=== PATIENT | female | born 1930 | race Caucasian/White ===

== ENCOUNTER → 2017-01-05 | Outpatient (CLI) | payer MEDICARE, BC ==
[2017-01-05 15:56] LABS: ABSOLUTE BASOPHILS # (AUTO) 0.1 10^3/uL (0.0-0.2); ABSOLUTE EOSINOPHILS # (AUTO) 0.2 10^3/uL (0.0-0.6); ABSOLUTE LYMPHOCYTES (AUTO) 2.3 10^3/uL (0.5-4.7); ABSOLUTE MONOCYTES (AUTO) 0.9 10^3/uL (0.1-1.4); ABSOLUTE NEUT (AUTO) 6.6 10^3/uL (1.7-8.2); BASOPHILS % (AUTO) 0.6 % (0-2); EOSINOPHILS % (AUTO) 1.5 % (0-6); HEMATOCRIT 46.8 % (36.0-47.0); HEMOGLOBIN 16.1 g/dL (12.0-15.5); HGB HCT DIFFERENCE 1.5; MEAN CORPUSCULAR HEMOGLOBIN 29.5 pg (27.0-33.4); MEAN CORPUSCULAR HGB CONC 34.5 g/dL (32.0-36.0); MEAN CORPUSCULAR VOLUME 86 fl (80-97); MONOCYTES % (AUTO) 9.1 % (3-13); RED BLOOD COUNT 5.47 10^6/uL (3.72-5.28); RED CELL DISTRIBUTION WIDTH 14.7 % (11.5-14.0); SEGMENTED NEUTROPHILS % (AUTO) 65.8 % (42-78); WHITE BLOOD COUNT 10.1 10^3/uL (4.0-10.5)
== END ==
LOC: OD 14:38
PROVIDERS: ATTEND Internal Medicine
DX: J45.909 Unspecified asthma, uncomplicated (principal)
CPT/HCPCS: 36415; 71020; 85025

== ENCOUNTER → 2017-06-04 | Outpatient (CLI) | payer MEDICARE, BC ==
[2017-06-04 13:52] LABS: ABSOLUTE BASOPHILS # (AUTO) 0.1 10^3/uL (0.0-0.2); ABSOLUTE EOSINOPHILS # (AUTO) 0.3 10^3/uL (0.0-0.6); ABSOLUTE MONOCYTES (AUTO) 0.7 10^3/uL (0.1-1.4); ABSOLUTE NEUT (AUTO) 4.3 10^3/uL (1.7-8.2); BASOPHILS % (AUTO) 1.2 % (0-2); EOSINOPHILS % (AUTO) 4.4 % (0-6); HEMATOCRIT 42.6 % (36.0-47.0); HEMOGLOBIN 14.9 g/dL (12.0-15.5); HGB HCT DIFFERENCE 2.1; LYMPHOCYTES % (AUTO) 26.8 % (13-45); MEAN CORPUSCULAR HEMOGLOBIN 31.8 pg (27.0-33.4); MEAN CORPUSCULAR HGB CONC 34.9 g/dL (32.0-36.0); MEAN CORPUSCULAR VOLUME 91 fl (80-97); RED BLOOD COUNT 4.69 10^6/uL (3.72-5.28); RED CELL DISTRIBUTION WIDTH 14.4 % (11.5-14.0); SEGMENTED NEUTROPHILS % (AUTO) 58.6 % (42-78); WHITE BLOOD COUNT 7.3 10^3/uL (4.0-10.5)
[2017-06-04 14:24] LABS: APPEARANCE,URINE SLIGHTLY-CLOUDY; BILIRUBIN,URINE NEGATIVE (NEGATIVE); GLUCOSE, URINE NEGATIVE (NEGATIVE); KETONES,URINE NEGATIVE (NEGATIVE); LEUKOCYTE ESTERASE,URINE NEGATIVE (NEGATIVE); NITRITE,URINE NEGATIVE (NEGATIVE); PROTEIN,URINE 100 mg/dL (NEGATIVE); URINE SPECIFIC GRAVITY 1.017
== END ==
LOC: OD 13:17
PROVIDERS: ATTEND Family Medicine Geriatric Medicine
DX: R31.9 Hematuria, unspecified (principal); Z79.899 Other long term (current) drug therapy
CPT/HCPCS: 36415; 81001; 85025; 87086

== ENCOUNTER → 2017-06-11 | Outpatient (CLI) | payer MEDICARE, BC ==
[2017-06-11 13:14] LABS: ABSOLUTE BASOPHILS # (AUTO) 0.1 10^3/uL (0.0-0.2); ABSOLUTE EOSINOPHILS # (AUTO) 0.1 10^3/uL (0.0-0.6); ABSOLUTE LYMPHOCYTES (AUTO) 1.8 10^3/uL (0.5-4.7); ABSOLUTE MONOCYTES (AUTO) 0.7 10^3/uL (0.1-1.4); ABSOLUTE NEUT (AUTO) 3.7 10^3/uL (1.7-8.2); BASOPHILS % (AUTO) 1.1 % (0-2); EOSINOPHILS % (AUTO) 2.2 % (0-6); HEMATOCRIT 42.1 % (36.0-47.0); HEMOGLOBIN 14.7 g/dL (12.0-15.5); LYMPHOCYTES % (AUTO) 28.2 % (13-45); MEAN CORPUSCULAR HEMOGLOBIN 31.7 pg (27.0-33.4); MEAN CORPUSCULAR HGB CONC 34.8 g/dL (32.0-36.0); MEAN CORPUSCULAR VOLUME 91 fl (80-97); MONOCYTES % (AUTO) 10.3 % (3-13); RED BLOOD COUNT 4.62 10^6/uL (3.72-5.28); RED CELL DISTRIBUTION WIDTH 14.2 % (11.5-14.0); SEGMENTED NEUTROPHILS % (AUTO) 58.2 % (42-78); WHITE BLOOD COUNT 6.4 10^3/uL (4.0-10.5)
== END ==
LOC: OD 12:19
PROVIDERS: ATTEND Family Medicine Geriatric Medicine
DX: N39.0 Urinary tract infection, site not specified (principal); R31.9 Hematuria, unspecified
CPT/HCPCS: 36415; 85025

== ENCOUNTER → 2018-01-20 | Outpatient (CLI) | payer MEDICARE, BC ==
[2018-01-20 08:34] LABS: ABSOLUTE BASOPHILS # (AUTO) 0.1 10^3/uL (0.0-0.2); ABSOLUTE EOSINOPHILS # (AUTO) 0.1 10^3/uL (0.0-0.6); ABSOLUTE LYMPHOCYTES (AUTO) 1.6 10^3/uL (0.5-4.7); ABSOLUTE MONOCYTES (AUTO) 0.5 10^3/uL (0.1-1.4); ABSOLUTE NEUT (AUTO) 2.6 10^3/uL (1.7-8.2); BASOPHILS % (AUTO) 1.2 % (0-2); EOSINOPHILS % (AUTO) 2.8 % (0-6); HEMATOCRIT 41.3 % (36.0-47.0); HEMOGLOBIN 14.2 g/dL (12.0-15.5); LYMPHOCYTES % (AUTO) 32.6 % (13-45); MEAN CORPUSCULAR HEMOGLOBIN 31.2 pg (27.0-33.4); MEAN CORPUSCULAR HGB CONC 34.5 g/dL (32.0-36.0); MEAN CORPUSCULAR VOLUME 91 fl (80-97); MONOCYTES % (AUTO) 10.5 % (3-13); PLATELET COUNT 191 10^3/uL (150-450); RED BLOOD COUNT 4.55 10^6/uL (3.72-5.28); RED CELL DISTRIBUTION WIDTH 13.6 % (11.5-14.0); SEGMENTED NEUTROPHILS % (AUTO) 52.9 % (42-78); TOTAL CELLS COUNTED % (AUTO) 100 %
[2018-01-20 09:03] LABS: ALANINE AMINOTRANSFERASE 27 U/L (9-52); ALBUMIN 3.7 g/dL (3.5-5.0); ALKALINE PHOSPHATASE 164 U/L (38-126); ANION GAP 9 (5-19); ASPARTATE AMINO TRANSFERASE 12 U/L (14-36); BILIRUBIN,DIRECT 0.3 mg/dL (0.0-0.4); BILIRUBIN,TOTAL 0.4 mg/dL (0.2-1.3); BLOOD UREA NITROGEN 20 mg/dL (7-20); CALCIUM 9.5 mg/dL (8.4-10.2); CARBON DIOXIDE 36 mmol/L (22-30); CHLORIDE 102 mmol/L (98-107); CHOLESTEROL 143.38 mg/dL (0-200); GLUCOSE 101 mg/dL (75-110); POTASSIUM 3.3 mmol/L (3.6-5.0); SODIUM 146.8 mmol/L (137-145); TOTAL PROTEIN 6.3 g/dL (6.3-8.2); TRIGLYCERIDES 107 mg/dL (<150); URIC ACID 9.1 mg/dL (2.5-7.5)
[2018-01-20 09:16] LABS: DIRECT LDL 64 mg/dL (<100)
== END ==
LOC: OD 07:34
PROVIDERS: ATTEND Internal Medicine
DX: I48.0 Paroxysmal atrial fibrillation (principal); I73.9 Peripheral vascular disease, unspecified; M10.9 Gout, unspecified; I12.9 Hypertensive chronic kidney disease with stage 1 through stage 4 chronic kidney disease, or unspecified chronic kidney disease; N18.9 Chronic kidney disease, unspecified; R53.83 Other fatigue; E78.5 Hyperlipidemia, unspecified
CPT/HCPCS: 36415; 80053; 80061; 83735; 84443; 84550; 85025

== ENCOUNTER → 2018-10-31 | Outpatient (CLI) | payer MEDICARE, BC ==
[2018-10-31 10:10] LABS: ABSOLUTE EOSINOPHILS # (AUTO) 0.2 10^3/uL (0.0-0.6); ABSOLUTE LYMPHOCYTES (AUTO) 1.1 10^3/uL (0.5-4.7); ABSOLUTE MONOCYTES (AUTO) 0.6 10^3/uL (0.1-1.4); BASOPHILS % (AUTO) 0.8 % (0-2); EOSINOPHILS % (AUTO) 2.7 % (0-6); HEMATOCRIT 36.1 % (36.0-47.0); HEMOGLOBIN 12.4 g/dL (12.0-15.5); LYMPHOCYTES % (AUTO) 18.3 % (13-45); MEAN CORPUSCULAR HEMOGLOBIN 30.5 pg (27.0-33.4); MEAN CORPUSCULAR HGB CONC 34.3 g/dL (32.0-36.0); MEAN CORPUSCULAR VOLUME 89 fl (80-97); MONOCYTES % (AUTO) 10.6 % (3-13); PLATELET COUNT 207 10^3/uL (150-450); RED BLOOD COUNT 4.06 10^6/uL (3.72-5.28); RED CELL DISTRIBUTION WIDTH 14.7 % (11.5-14.0); SEGMENTED NEUTROPHILS % (AUTO) 67.6 % (42-78); TOTAL CELLS COUNTED % (AUTO) 100 %
[2018-10-31 10:44] LABS: ALANINE AMINOTRANSFERASE 30 U/L (9-52); ALBUMIN 3.4 g/dL (3.5-5.0); ALKALINE PHOSPHATASE 172 U/L (38-126); ANION GAP 7 (5-19); ASPARTATE AMINO TRANSFERASE 12 U/L (14-36); BILIRUBIN,DIRECT 0.2 mg/dL (0.0-0.4); BILIRUBIN,TOTAL 0.5 mg/dL (0.2-1.3); BLOOD UREA NITROGEN 25 mg/dL (7-20); CALCIUM 8.9 mg/dL (8.4-10.2); CARBON DIOXIDE 36 mmol/L (22-30); CHLORIDE 99 mmol/L (98-107); CHOLESTEROL 104.79 mg/dL (0-200); GLUCOSE 90 mg/dL (75-110); SODIUM 142.4 mmol/L (137-145); TOTAL PROTEIN 5.9 g/dL (6.3-8.2); TRIGLYCERIDES 91 mg/dL (<150)
[2018-10-31 10:55] LABS: DIRECT LDL 50 mg/dL (<100)
[2018-10-31 11:30] LABS: POTASSIUM 2.9 mmol/L (3.6-5.0)
== END ==
LOC: OD 08:30
PROVIDERS: ATTEND Internal Medicine
DX: E78.5 Hyperlipidemia, unspecified (principal); M10.9 Gout, unspecified; I73.9 Peripheral vascular disease, unspecified; R53.83 Other fatigue; N18.2 Chronic kidney disease, stage 2 (mild); I48.0 Paroxysmal atrial fibrillation
CPT/HCPCS: 36415; 80053; 80061; 84443; 84550; 85025

== ENCOUNTER 2019-05-12 08:49 | Inpatient (IN) | payer MEDICARE, BC ==
[2019-05-12] MEDS ORDERED: NORMAL SALINE 1000 ML 1,000 ML IV ONE (08:58)
[2019-05-12 09:06] LABS: ABSOLUTE EOSINOPHILS # (AUTO) 0.1 10^3/uL (0.0-0.6); EOSINOPHILS % (AUTO) 1.4 % (0-6); HEMOGLOBIN 13.1 g/dL (12.0-15.5); MEAN CORPUSCULAR HEMOGLOBIN 28.5 pg (27.0-33.4); MEAN CORPUSCULAR HGB CONC 32.7 g/dL (32.0-36.0); PLATELET COUNT 171 10^3/uL (150-450); TOTAL CELLS COUNTED % (AUTO) 100 %
[2019-05-12 09:11] LABS: ABSOLUTE MONOCYTES (AUTO) 0.6 10^3/uL (0.1-1.4); ABSOLUTE NEUT (AUTO) 5.4 10^3/uL (1.7-8.2); BASOPHILS % (AUTO) 0.6 % (0-2); LYMPHOCYTES % (AUTO) 13.6 % (13-45); MEAN CORPUSCULAR VOLUME 87 fl (80-97); RED BLOOD COUNT 4.58 10^6/uL (3.72-5.28); RED CELL DISTRIBUTION WIDTH 15.4 % (11.5-14.0); SEGMENTED NEUTROPHILS % (AUTO) 75.4 % (42-78); WHITE BLOOD COUNT 7.2 10^3/uL (4.0-10.5)
[2019-05-12 09:15] LABS: PROTHROMBIN TIME 17.3 SEC (11.4-15.4)
[2019-05-12 09:21] LABS: ALBUMIN 2.9 g/dL (3.5-5.0); ALKALINE PHOSPHATASE 191 U/L (38-126); ANION GAP 5 (5-19); ASPARTATE AMINO TRANSFERASE 15 U/L (14-36); BILIRUBIN,DIRECT 0.4 mg/dL (0.0-0.4); BILIRUBIN,TOTAL 0.7 mg/dL (0.2-1.3); BLOOD UREA NITROGEN 20 mg/dL (7-20); CALCIUM 8.8 mg/dL (8.4-10.2); CARBON DIOXIDE 27 mmol/L (22-30); CHLORIDE 108 mmol/L (98-107); GLUCOSE 90 mg/dL (75-110); POTASSIUM 4.1 mmol/L (3.6-5.0); TOTAL PROTEIN 5.6 g/dL (6.3-8.2)
[2019-05-12] MEDS ORDERED: FAT EMULSIONS IV ONE ×2 (09:33→11:00)
[2019-05-12] MEDS ORDERED: SODIUM BICARBONATE 8.4% INJ 50 MEQ/50 ML DISP.SYRIN IV ONE ×3 (09:51→15:15)
[2019-05-12 10:02] LABS: VENOUS BLOOD BASE EXCESS 1.9 mmol/L; VENOUS BLOOD HCO3 28.6 mmol/L (20-32); VENOUS BLOOD PCO2 53.5 mmHg (35-63); VENOUS BLOOD PH 7.35 (7.30-7.42)
[2019-05-12 10:03] LABS: APPEARANCE,URINE CLOUDY; BILIRUBIN,URINE NEGATIVE (NEGATIVE); GLUCOSE, URINE NEGATIVE (NEGATIVE); KETONES,URINE NEGATIVE (NEGATIVE); LEUKOCYTE ESTERASE,URINE TRACE (NEGATIVE); NITRITE,URINE NEGATIVE (NEGATIVE); PROTEIN,URINE 100 mg/dL (NEGATIVE); URINE SPECIFIC GRAVITY 1.017
[2019-05-12 10:04] LABS: COLOR,URINE AMBER
--- NOTE | 2019-05-12 10:14 | RADIOLOGY REPORT (SQ) ---
EXAM DESCRIPTION: CHEST SINGLE VIEW COMPLETED DATE/TIME: 05/12/2019 10:03 am REASON FOR STUDY: weakness COMPARISON: 09/27/2012 NUMBER OF VIEWS: One view. TECHNIQUE: Single frontal radiographic image of the chest acquired. LIMITATIONS: None. FINDINGS: LUNGS AND PLEURA: Minimal bibasilar atelectasis left greater than right. No pneumothorax. No consolidation. Numerous leads and tubes overlie the chest. MEDIASTINUM AND HILAR STRUCTURES: Unchanged. HEART AND VASCULAR STRUCTURES: Normal size. No failure. BONES: No acute findings. OTHER: No other significant finding. IMPRESSION: Basilar atelectasis. No evidence of pneumothorax. No overt failure. TECHNICAL DOCUMENTATION: JOB ID: [id number] [employer]- All Rights Reserved Reading location - IP/workstation name: [email or web address]
[2019-05-12] MEDS ORDERED: FAT EMULSIONS 250 ML IV ONE (10:20)
[2019-05-12] MEDS ORDERED: MAG HYDROX/AL HYDROX/SIMETH SUSP 30 ML UDCUP PO PRN (10:35)
[2019-05-12] MEDS ORDERED: IPRATROPIUM/ALBUTEROL 0.5-2.5 MG/3 ML AMPUL NEB PRN (10:35)
--- NOTE | 2019-05-12 10:41 | ER Document Report ---
Entered by SUZAN ESCALONA SCRIBE 05/12/19 0923 Acting as scribe for:BRI LARIOS DO ED General - General Chief Complaint: Weakness Stated Complaint: WEAKNESS Time Seen by Provider: 05/12/19 08:57 Primary Care Provider: DAVID MARES MD [Primary Care Provider] - Follow up as needed Mode of Arrival: Medic Information source: Patient Notes: Patient is an 88 year old female that presents to the emergency department today with complaints of lightheadedness when standing along with generalized weakness for months. On arrival here the patient is bradycardic with a heart rate in the 30s and hypotensive at 70s/40s. Patient takes flecainide 150 mg twice daily and Cardizem ER 180 mg daily although she has not taken any morning medications today. Patient states she stopped taking her bumex x1.5 weeks ago because she "peed too much". Patient mentions developing a brief episode of chest pain this morning at 0300. Patient also complains of "having the shakes". TRAVEL OUTSIDE OF THE [place] IN LAST 30 DAYS: No - Related Data Allergies/Adverse Reactions: cyclobenzaprine [Cyclobenzaprine] Allergy (Severe, Verified 11/20/15 10:41) leg ulcers meloxicam [From Mobic] Allergy (Severe, Verified 11/20/15 10:41) leg ulcers Penicillins Allergy (Intermediate, Verified 07/03/11 10:49) RASH Past Medical History - General Information source: Patient - Social History Smoking Status: Unknown if Ever Smoked Cigarette use (# per day): No Frequency of alcohol use: None Drug Abuse: None Lives with: Family Family History: Reviewed & Not Pertinent Patient has suicidal ideation: No Patient has homicidal ideation: No - Past Medical History Cardiac Medical History: Reports: Hx Atrial Fibrillation, Hx Hypercholesterolemia Musculoskeletal Medical History: Reports Hx Arthritis - rt knee Past Surgical History: - Immunizations Hx Diphtheria, Pertussis, Tetanus Vaccination: No Hx Pneumococcal Vaccination: 09/06/06 Review of Systems - Review of Systems Constitutional: No symptoms reported EENT: No symptoms reported Cardiovascular: See HPI, Chest pain, Lightheaded Respiratory: No symptoms reported Gastrointestinal: No symptoms reported Genitourinary: No symptoms reported Female Genitourinary: No symptoms reported Musculoskeletal: No symptoms reported Skin: No symptoms reported Hematologic/Lymphatic: No symptoms reported Neurological/Psychological: See HPI, Other - "the shakes" -: Yes All other systems reviewed and negative Physical Exam - Vital signs Vitals: Temp 98.6 F 05/12/19 08:58 Interpretation: Hypotensive, Bradycardic - General General appearance: Lethargic - HEENT Head: Normocephalic, Atraumatic Extraocular movements intact: Yes Mucous membranes: Normal Pharynx: Normal - Respiratory Respiratory status: No respiratory distress Chest status: Nontender Breath sounds: Normal - Cardiovascular Rhythm: Bradycardia - Abdominal Inspection: Normal Distension: No distension Tenderness: Nontender - Back Back: Normal - Extremities General upper extremity: Normal inspection, Nontender, Normal ROM, Normal strength, Other - Resting tremor General lower extremity: Nontender, Edema - Nonpitting, Normal strength - Neurological Neuro grossly intact: Yes Cognition: Normal Orientation: AAOx4 [place] Coma Scale Eye Opening: Spontaneous Kirill Coma Scale Verbal: Oriented Kirill Coma Scale Motor: Obeys Commands Kirill Coma Scale Total: 15 Speech: Normal Motor strength normal: LUE, RUE, LLE, RLE Sensory: Normal - Skin Skin Temperature: Cool Course - Re-evaluation Re-evalutation: 05/12/19 09:28 Spoke to transfer center at [facility]. They will get a hold of whoever is on for Dr. Palmer, the patient's burr picker. 05/12/19 09:30 Called poison control to discuss patient's heart rate, blood pressure and potential for diltiazem or flecainide toxicity. Initially said to give 2 L of normal saline which patient was already receiving. Also said to consider Intralipid therapy. This was ordered and then canceled after discussion with senior hr manager. Given patient's EKG which is showing a sinus bradycardia of 35, [place] interval of 222, QRS 140, QTc 422, recommend amps of bicarb at 2 mEq/kg. Followed by lidocaine 1.5 mg/kg over 2-minute. Intralipid was canceled and bicarb was ordered. 10:20 Received callback from WASHINGTON Garsia at [facility]. Does not think that this is related to flecainide but more likely diltiazem especially given patient's age and lowered GFR. Patient's blood pressure is improved to 160s over 70s with fluids. Heart rate is still low. Does not think that the patient requires transfer at this time. Will treat symptomatically and transfer later if necessary. Agrees with bicarb and lidocaine. 05/12/19 10:[address] Burr, hospitalist here. Patient's current heart rate is 2:42 amps of bicarb. Pressure is 160/72. Patient is awake and alert. Will accept for admission to the ICU. Patient and are agreeable to this plan. Patient is an 88-year-old female who comes in with symptomatic bradycardia. Initial heart rate in the 30s and blood pressure 70s over 40s. Patient brought her pill pack with her. She takes Cardizem 180 mg extended release daily. States that she does not believe she is taking this medication since yesterday. Takes flecainide 150 mg twice a day. Patient has not taken any medications this morning. Last pill was taken at 730 last night. Patient has not been taking Bumex because she does not like the way that it makes her pee. Fluids started for hypotension. Discussed with poison control, electrophysiology at [facility]. Patient will be admitted to the hospitalist service here to the ICU. Stable at the time of admission. - Vital Signs Vital signs: Temp Pulse Resp BP Pulse Ox 98.6 F 17 160/72 H 98 05/12/19 08:58 05/12/19 10:31 05/12/19 10:31 05/12/19 10:31 - Laboratory Result Diagrams: 05/12/19 08:38 05/12/19 08:38 Laboratory results interpreted by me: 05/12/19 05/12/19 05/12/19 08:38 08:38 08:38 RDW 15.4 H PT 17.3 H Chloride 108 H Est GFR ( Amer) 49 L Est GFR (MDRD) Non-Af 41 L Alkaline Phosphatase 191 H Total Protein 5.6 L Albumin 2.9 L Urine Protein Urine Blood Urine Urobilinogen Ur Leukocyte Esterase 05/12/19 09:40 RDW PT Chloride Est GFR ( Amer) Est GFR (MDRD) Non-Af Alkaline Phosphatase Total Protein Albumin Urine Protein 100 H Urine Blood LARGE H Urine Urobilinogen 2.0 H Ur Leukocyte Esterase TRACE H - EKG Interpretation by Me Rate: Bradycardia When compared to previous EKG there are: Changes noted Critical Care Note - Critical Care Note Total time excluding time spent on procedures (mins): 60 - Evaluation and management of symptomatic bradycardia, hypotension, discussion with consultants, coordination of admission, discussion with patient and family Discharge - Discharge Clinical Impression: Symptomatic bradycardia Condition: Stable Disposition: ADMITTED INPATIENT Admitting Provider: Leno (Hospitalist) Unit Admitted: ICU Referrals: DAVID MARES MD [Primary Care Provider] - Follow up as needed I personally performed the services described in the documentation, reviewed and edited the documentation which was dictated to the scribe in my presence, and it accurately records my words and actions.
[2019-05-12] MEDS ORDERED: GLUCAGON,HUMAN RECOMB 1 MG INJ SUBCUT ONE (11:00)
[2019-05-12 11:20] LABS: PHOSPHORUS 3.3 mg/dL (2.5-4.5)
[2019-05-12] MEDS ORDERED: CALCIUM GLUCONATE 2,000 MG in DEXTROSE 5%-WATER 100 ML IV ONE (11:30)
[2019-05-12] MEDS ORDERED: ONDANSETRON HCL INJ/PF 4 MG/2 ML SDV IV ONE (11:36)
[2019-05-12] MEDS ORDERED: SODIUM BICARBONATE 8.4% INJ 50 MEQ/50 ML DISP.SYRIN ONE (12:51)
[2019-05-12] MEDS ORDERED: LACTULOSE SYRUP 20 GM/30 ML UDCUP PO ONE (13:40)
--- NOTE | 2019-05-12 14:17 | PDOC H&P ---
History of Present Illness Admission Date/PCP: 05/12/19 10:43 DAVID MARES MD Patient complains of: Generalized weakness History of Present Illness: JOHN FAULKNER is a 88 year old female with a past medical history of morbid obesity, diabetes and paroxysmal atrial fibrillation on Eliquis, flecainide and Cardizem. Morbid obesity generalized debility, gait disorder transferring from bed to commode at baseline. She presents with 3 or 4 weeks of generalized weakness at the insistence of her daughter. She is found to have a heart rate in the 30s a blood pressure of 70/40. She denies recent change in medications via pill packs, [id number] agents or additional medications. She does however admit to discontinuation of Bumex weeks ago because of excessive urination. Poison control was contacted by emergency room provider recommending calcium ca rbonate as needed QRS greater than 140 and ICU observation. She denies chest pain nausea vomiting diaphoresis. Past Medical History Cardiac Medical History: Reports: Atrial Fibrillation, Hyperlipidema Denies: Coronary Artery Disease, Myocardial Infarction, Hypertension Pulmonary Medical History: Denies: Asthma, Bronchitis, Chronic Obstructive Pulmonary Disease (COPD), Pneumonia Neurological Medical History: Denies: Seizures GI Medical History: Denies: Hepatitis, Hiatal Hernia Musculoskeltal Medical History: Reports: Arthritis - rt knee Hematology: Denies: Anemia, Sickle Cell Disease Past Surgical History Past Surgical History: Denies: Amputation, Mastectomy, Pacemaker Social History Information Source: Patient, Emergency Med Personnel, [facility] Records Lives with: Family Smoking Status: Unknown if Ever Smoked Frequency of Alcohol Use: None Hx Recreational Drug Use: No Drugs: None Hx Prescription Drug Abuse: No - Advance Directive Resuscitation Status: Full Code Family History Family History: Hypertension Parental Family History Reviewed: Yes Children Family History Reviewed: Yes Sibling(s) Family History Reviewed.: Yes Medication/Allergy Home Medications: Allopurinol [Zyloprim 300 mg Tablet] 300 mg PO DAILY 05/12/19 Apixaban [Eliquis 2.5 mg Tablet] 2.5 mg PO BID 05/12/19 Bumetanide 1 mg PO BID 05/12/19 Diltiazem HCl [Diltiazem 24Hr ER] 180 mg PO DAILY 05/12/19 Ergocalciferol (Vitamin D2) [Drisdol] 50,000 unit PO .ONCE WEEKLY 05/12/19 Flecainide Acetate [Tambocor 100 Mg Tablet] 150 mg PO Q12H 05/12/19 Metformin HCl [Metformin ER Osmotic] 500 mg PO QHS 05/12/19 Potassium Citrate [Potassium Citrate ER] 15 meq PO BID 05/12/19 Pravastatin Sodium [Pravachol] 80 mg PO DAILY 05/12/19 Sodium Bicarbonate [Sodium Bicarbonate 650 mg Tablet] 650 mg PO BID 05/12/19 Allergies/Adverse Reactions: cyclobenzaprine [Cyclobenzaprine] Allergy (Severe, Verified 11/20/15 10:41) leg ulcers meloxicam [From Mobic] Allergy (Severe, Verified 11/20/15 10:41) leg ulcers Penicillins Allergy (Intermediate, Verified 07/03/11 10:49) RASH Review of Systems Constitutional: PRESENT: as per HPI, fatigue, weakness, weight gain. ABSENT: night sweats, weight loss Eyes: ABSENT: visual disturbances Ears: ABSENT: hearing changes Cardiovascular: PRESENT: as per HPI, dyspnea on exertion, edema. ABSENT: chest pain, palpitations Respiratory: ABSENT: cough, hemoptysis Gastrointestinal: PRESENT: constipation. ABSENT: abdominal pain, diarrhea, hematemesis, hematochezia, nausea, vomiting Genitourinary: ABSENT: dysuria, hematuria Musculoskeletal: PRESENT: muscle weakness. ABSENT: joint swelling Integumentary: ABSENT: rash, wounds Neurological: ABSENT: abnormal gait, abnormal speech, confusion, dizziness, focal weakness, syncope Psychiatric: ABSENT: anxiety, depression, homidical ideation, suicidal ideation Endocrine: ABSENT: cold intolerance, heat intolerance, polydipsia, polyuria Hematologic/Lymphatic: ABSENT: easy bleeding, easy bruising Physical Exam Vital Signs: Temp Pulse Resp BP Pulse Ox 97.8 F 50 L 18 162/69 H 96 05/12/19 12:18 05/12/19 12:18 05/12/19 12:18 05/12/19 12:18 05/12/19 12:18 Intake & Output 05/11/19 05/12/19 05/13/19 11:59 11:59 11:59 Intake Total 1000 Balance 1000 Weight 122.6 kg 121.6 kg General appearance: PRESENT: no acute distress, cooperative, morbidly obese Head exam: PRESENT: atraumatic, normocephalic Eye exam: PRESENT: conjunctiva pink, EOMI, PERRLA. ABSENT: scleral icterus Ear exam: PRESENT: normal external ear exam Mouth exam: PRESENT: moist, tongue midline Neck exam: ABSENT: carotid bruit, JVD, lymphadenopathy, thyromegaly Respiratory exam: PRESENT: clear to auscultation suzanne, symmetrical. ABSENT: accessory muscle use, rales, rhonchi, wheezes Cardiovascular exam: PRESENT: bradycardia, RRR. ABSENT: diastolic murmur, gallop, rubs, systolic murmur Pulses: PRESENT: normal dorsalis pedis pul Vascular exam: PRESENT: normal capillary refill GI/Abdominal exam: PRESENT: distended, hypoactive bowel sounds, normal bowel sounds, soft. ABSENT: guarding, mass, organolmegaly, rebound, tenderness Rectal exam: PRESENT: deferred Extremities exam: PRESENT: +1 edema Neurological exam: PRESENT: alert, awake, oriented to person, oriented to place, oriented to time, oriented to situation, CN II-XII grossly intact. ABSENT: motor sensory deficit Psychiatric exam: PRESENT: appropriate affect, normal mood. ABSENT: homicidal ideation, suicidal ideation Skin exam: PRESENT: dry, intact, warm. ABSENT: cyanosis, rash Results Laboratory Results: 05/12/19 08:38 05/12/19 08:38 05/12/19 05/12/19 05/12/19 08:38 08:38 08:38 WBC 7.2 RBC 4.58 Hgb 13.1 Hct 40.0 MCV 87 MCH 28.5 MCHC 32.7 RDW 15.4 H Plt Count 171 Seg Neutrophils % 75.4 VBG pH VBG pCO2 VBG HCO3 VBG Base Excess Sodium 140.3 Potassium 4.1 Chloride 108 H Carbon Dioxide 27 Anion Gap 5 BUN 20 Creatinine 1.25 Est GFR ( Amer) 49 L Glucose 90 Lactic Acid Calcium 8.8 Phosphorus 3.3 Magnesium 2.1 Total Bilirubin 0.7 AST 15 Alkaline Phosphatase 191 H Total Protein 5.6 L Albumin 2.9 L TSH Urine Color Urine Appearance Urine pH Ur Specific [place] Urine Protein Urine Glucose (UA) Urine Ketones Urine Blood Urine Nitrite Ur Leukocyte Esterase Urine WBC (Auto) Urine RBC (Auto) 05/12/19 05/12/19 05/12/19 08:38 09:23 09:40 WBC RBC Hgb Hct MCV MCH MCHC RDW Plt Count Seg Neutrophils % VBG pH 7.35 VBG pCO2 53.5 VBG HCO3 28.6 VBG Base Excess 1.9 Sodium Potassium Chloride Carbon Dioxide Anion Gap BUN Creatinine Est GFR ( Amer) Glucose Lactic Acid 1.2 Calcium Phosphorus Magnesium Total Bilirubin AST Alkaline Phosphatase Total Protein Albumin TSH 2.27 Urine Color Urine Appearance Urine pH Ur Specific [place] Urine Protein Urine Glucose (UA) Urine Ketones Urine Blood Urine Nitrite Ur Leukocyte Esterase Urine WBC (Auto) Urine RBC (Auto) 05/12/19 09:40 WBC RBC Hgb Hct MCV MCH MCHC RDW Plt Count Seg Neutrophils % VBG pH VBG pCO2 VBG HCO3 VBG Base Excess Sodium Potassium Chloride Carbon Dioxide Anion Gap BUN Creatinine Est GFR ( Amer) Glucose Lactic Acid Calcium Phosphorus Magnesium Total Bilirubin AST Alkaline Phosphatase Total Protein Albumin TSH Urine Color [place] Urine Appearance CLOUDY Urine pH 9.0 Ur Specific [place] 1.017 Urine Protein 100 H Urine Glucose (UA) NEGATIVE Urine Ketones NEGATIVE Urine Blood LARGE H Urine Nitrite NEGATIVE Ur Leukocyte Esterase TRACE H Urine WBC (Auto) 24 Urine RBC (Auto) >182 05/12/19 05/12/19 08:38 08:38 Creatine Kinase 30 Troponin I 0.018 Impressions: Chest X-Ray 05/12/19 08:58 IMPRESSION: Basilar atelectasis. No evidence of pneumothorax. No overt failure. Assessment and Plan - Diagnosis (1) Diabetes Qualifiers: Diabetes mellitus type: type 2 Is this a current diagnosis for this admission?: Yes Plan: Humalog sliding scale, hold metformin (2) Weakness Is this a current diagnosis for this admission?: Yes Plan: Generalized debility, morbid obesity, follow-up TSH, physical therapy consult (3) Constipation Is this a current diagnosis for this admission?: Yes Plan: Last bowel movement greater than 1 week, lactulose daily ordered. (4) Paroxysmal atrial fibrillation Is this a current diagnosis for this admission?: Yes Plan: Holding flecainide and diltiazem, reintroduction with diltiazem 30 every 8 hours when heart rate greater than 80. Continue Eliquis (5) Symptomatic bradycardia Is this a current diagnosis for this admission?: Yes Plan: Likely secondary to flecainide, diltiazem accumulation. No symptoms of hypoperfusion, orthostatic blood pressures ordered when a heart rate greater than 60. - Time Time Spent with patient: 25-34 minutes - Inpatient Certification Medical Necessity: Need Close Monitoring Due to Risk of Patient Decompensation
[2019-05-12] MEDS ORDERED: CALCIUM GLUCONATE 1000 MG/10 ML INJ IV ONE ×2 (14:36→14:45)
[2019-05-12] MEDS ORDERED: FUROSEMIDE INJ/PF 40 MG/4 ML SDV ONE (14:42)
[2019-05-12] MEDS ORDERED: HYDRALAZINE HCL INJ/PF 20 MG/1 ML SDV ONE (14:42)
[2019-05-12] MEDS: HYDRALAZINE HCL INJ/PF 20 MG/1 ML SDV IV PRN ×2 (14:54→21:31)
[2019-05-12] MEDS ORDERED: FUROSEMIDE INJ/PF 40 MG/4 ML SDV IV ONE (15:00)
[2019-05-12] MEDS: NITROGLYCERIN 5 MG (0.2 MG/HR) PATCH.TD24 TD SCH (17:52)
[2019-05-12 19:00] LABS: ALBUMIN 3.3 g/dL (3.5-5.0); ALKALINE PHOSPHATASE 224 U/L (38-126); ANION GAP 7 (5-19); ASPARTATE AMINO TRANSFERASE 18 U/L (14-36); BILIRUBIN,DIRECT 0.4 mg/dL (0.0-0.4); BILIRUBIN,TOTAL 0.7 mg/dL (0.2-1.3); BLOOD UREA NITROGEN 20 mg/dL (7-20); CALCIUM 9.7 mg/dL (8.4-10.2); CARBON DIOXIDE 35 mmol/L (22-30); CHLORIDE 102 mmol/L (98-107); GLUCOSE 112 mg/dL (75-110); POTASSIUM 4.1 mmol/L (3.6-5.0); TOTAL PROTEIN 5.9 g/dL (6.3-8.2)
[2019-05-13 03:47] LABS: ABSOLUTE BASOPHILS # (AUTO) 0.1 10^3/uL (0.0-0.2); ABSOLUTE EOSINOPHILS # (AUTO) 0.1 10^3/uL (0.0-0.6); ABSOLUTE LYMPHOCYTES (AUTO) 0.7 10^3/uL (0.5-4.7); ABSOLUTE MONOCYTES (AUTO) 0.8 10^3/uL (0.1-1.4); ABSOLUTE NEUT (AUTO) 7.1 10^3/uL (1.7-8.2); BASOPHILS % (AUTO) 0.6 % (0-2); HEMATOCRIT 38.4 % (36.0-47.0); HEMOGLOBIN 12.7 g/dL (12.0-15.5); LYMPHOCYTES % (AUTO) 7.8 % (13-45); MEAN CORPUSCULAR HEMOGLOBIN 28.4 pg (27.0-33.4); MEAN CORPUSCULAR HGB CONC 33.1 g/dL (32.0-36.0); MEAN CORPUSCULAR VOLUME 86 fl (80-97); MONOCYTES % (AUTO) 9.5 % (3-13); PLATELET COUNT 151 10^3/uL (150-450); RED BLOOD COUNT 4.47 10^6/uL (3.72-5.28); RED CELL DISTRIBUTION WIDTH 15.2 % (11.5-14.0); SEGMENTED NEUTROPHILS % (AUTO) 81.1 % (42-78); TOTAL CELLS COUNTED % (AUTO) 100 %; WHITE BLOOD COUNT 8.7 10^3/uL (4.0-10.5)
[2019-05-13 04:08] LABS: ANION GAP 6 (5-19); BLOOD UREA NITROGEN 18 mg/dL (7-20); CALCIUM 9.5 mg/dL (8.4-10.2); CARBON DIOXIDE 33 mmol/L (22-30); CHLORIDE 104 mmol/L (98-107); GLUCOSE 87 mg/dL (75-110); POTASSIUM 3.8 mmol/L (3.6-5.0)
[2019-05-13] MEDS ORDERED: ONDANSETRON HCL INJ/PF 4 MG/2 ML SDV ONE (10:05)
[2019-05-13] MEDS: LACTULOSE SYRUP 20 GM/30 ML UDCUP PO SCH (10:13)
[2019-05-13] MEDS: NITROGLYCERIN 5 MG (0.2 MG/HR) PATCH.TD24 TD SCH ×2 (10:14→14:52)
[2019-05-13] MEDS ORDERED: ONDANSETRON HCL INJ/PF 4 MG/2 ML SDV IV PRN (10:19)
--- NOTE | 2019-05-13 14:33 | PDOC PROGRESS REPORT ---
Subjective Progress Note for:: 05/13/19 Subjective:: Patient is resting in bed. Her and son are at the bedside. She still complains of shortness of breath. Reason For Visit: BRADYCARDIA, CCB TOX Physical Exam Vital Signs: Temp Pulse Resp BP Pulse Ox 98.0 F 54 L 15 151/71 H 99 05/13/19 12:00 05/13/19 12:00 05/13/19 12:00 05/13/19 12:00 05/13/19 12:00 Intake & Output 05/12/19 05/13/19 05/14/19 06:59 06:59 06:59 Intake Total 2000 Output Total 4000 Balance -2000 Weight 122.1 kg General appearance: PRESENT: no acute distress, morbidly obese, well-developed Head exam: PRESENT: atraumatic, normocephalic Eye exam: PRESENT: conjunctiva pink. ABSENT: scleral icterus Ear exam: PRESENT: normal external ear exam. ABSENT: bleeding, drainage Mouth exam: PRESENT: moist, tongue midline Respiratory exam: PRESENT: clear to auscultation suzanne - Anteriorly, symmetrical, unlabored. ABSENT: rales, rhonchi, tachypnea, wheezes Cardiovascular exam: PRESENT: RRR, +S1, +S2 GI/Abdominal exam: PRESENT: diminished bowel sounds, soft. ABSENT: distended, guarding, tenderness Rectal exam: PRESENT: deferred Extremities exam: PRESENT: pedal edema Neurological exam: PRESENT: alert, awake, oriented to person, oriented to place, oriented to time, oriented to situation, CN II-XII grossly intact Psychiatric exam: PRESENT: appropriate affect. ABSENT: agitated, anxious Focused psych exam: ABSENT: delusional, restlessness Results Laboratory Results: 05/13/19 03:29 05/13/19 03:29 05/12/19 05/13/19 05/13/19 18:30 03:29 03:29 WBC 8.7 RBC 4.47 Hgb 12.7 Hct 38.4 MCV 86 MCH 28.4 MCHC 33.1 RDW 15.2 H Plt Count 151 Seg Neutrophils % 81.1 H Sodium 143.6 143.4 Potassium 4.1 3.8 Chloride 102 104 Carbon Dioxide 35 H 33 H Anion Gap 7 6 BUN 20 18 Creatinine 1.26 H 1.23 Est GFR ( Amer) 49 L 50 L Glucose 112 H 87 Calcium 9.7 9.5 Magnesium Total Bilirubin 0.7 AST 18 Alkaline Phosphatase 224 H Total Protein 5.9 L Albumin 3.3 L 05/13/19 03:29 WBC RBC Hgb Hct MCV MCH MCHC RDW Plt Count Seg Neutrophils % Sodium Potassium Chloride Carbon Dioxide Anion Gap BUN Creatinine Est GFR ( Amer) Glucose Calcium Magnesium 2.0 Total Bilirubin AST Alkaline Phosphatase Total Protein Albumin 05/12/19 05/12/19 08:38 08:38 Creatine Kinase 30 Troponin I 0.018 Impressions: Chest X-Ray 05/12/19 08:58 IMPRESSION: Basilar atelectasis. No evidence of pneumothorax. No overt failure. Assessment and Plan - Diagnosis (1) Diabetes Qualifiers: Diabetes mellitus type: type 2 Is this a current diagnosis for this admission?: Yes Plan: 05/13/2019-history of diabetes. We will institute Accu-Cheks and sliding scale. Consider resuming metformin if appropriate. (2) Weakness Is this a current diagnosis for this admission?: Yes Plan: 05/13/2019-multiple reasons for weakness. Certainly her morbid obesity, her poor appetite over the last several days as well as her multiple comorbidities. Physical therapy will work the patient. (3) Constipation Qualifiers: Constipation type: chronic idiopathic constipation Qualified Code(s): K59.04 - Chronic idiopathic constipation Is this a current diagnosis for this admission?: Yes Plan: 05/13/2019-lactulose is prescribed. Continue to monitor for bowel movements. (4) Paroxysmal atrial fibrillation Is this a current diagnosis for this admission?: Yes Plan: 05/13/2019-the patient in fact is bradycardic. Tambocor and diltiazem are currently on hold. (5) Symptomatic bradycardia Is this a current diagnosis for this admission?: Yes Plan: 05/13/2019-despite bradycardia she is hypertensive. Between her weakness, vertigo and legs buckling under her there are multiple issues for dizziness and falling. (6) Hypertension Qualifiers: Hypertension type: essential hypertension Qualified Code(s): I10 - Essential (primary) hypertension Is this a current diagnosis for this admission?: Yes Plan: 05/13/2019-the blood pressure is elevated so I am going to resume Bumex 1 mg but administer it once daily. Continue to monitor intake and output closely. (7) Vertigo Is this a current diagnosis for this admission?: Yes Plan: 05/13/2019-she still reports symptoms of vertigo including nausea and room spinning. I am going to initiate a trial of low-dose meclizine. (8) Morbid obesity with BMI of 40.0-44.9, adult Is this a current diagnosis for this admission?: Yes Plan: 05/13/2019-patient's body mass index is 40.9. This certainly could be contributing to the sense of weakness and fatigue as well as cause some difficulty breathing. She would benefit from weight loss and this would likely be accomplished by diet as she does not appear to have the capacity for cardiova scular exercise. - Time Time Spent with patient: 15-24 minutes Medications reviewed and adjusted accordingly: Yes
[2019-05-13 15:11] LABS: AMORPHOUS SEDIMENT,URINE TRACE /HPF; APPEARANCE,URINE CLOUDY; BILIRUBIN,URINE NEGATIVE (NEGATIVE); COLOR,URINE YELLOW; GLUCOSE, URINE NEGATIVE (NEGATIVE); KETONES,URINE TRACE mg/dL (NEGATIVE); LEUKOCYTE ESTERASE,URINE NEGATIVE (NEGATIVE); NITRITE,URINE NEGATIVE (NEGATIVE); PROTEIN,URINE 30 mg/dL (NEGATIVE); URINE SPECIFIC GRAVITY 1.015
[2019-05-13] MEDS ORDERED: BUMETANIDE 1 MG TABLET PO ONE (15:30)
[2019-05-13] MEDS ORDERED: BUMETANIDE 1 MG TABLET ONE (17:29)
[2019-05-13] MEDS ORDERED: MECLIZINE HCL 25 MG TABLET ONE (17:30)
[2019-05-13] MEDS: MECLIZINE HCL 12.5 MG TABLET PO PRN (17:34)
[2019-05-13] MEDS: INSULIN LISPRO 100 UNIT/ML 3 ML VIAL SUBCUT SCH ×2 (17:38→21:11)
[2019-05-13] MEDS: CLOTRIMAZOLE/BETAMETHASONE DIP CREAM 15 GM TOP SCH (17:39)
--- NOTE | 2019-05-13 20:11 | PDOC CONSULTATION ---
Consultation-Blank Consultation: CONSULTATION by Dr. Eulalia Valdovinos on 05/13/2019. Patient seen at 12 noon. 60 minutes spent on this patient with more than 50% of time spent in direct patient care. REASON FOR CONSULTATION: Bradycardia with hypotension. For management CONSULT REQUESTING PHYSICIAN: Dr. Stuart Burr, hospitalist physician group. HISTORY PRESENT ILLNESS: Patient is a morbidly obese 88-year-old female with known history of paroxysmal atrial fibrillation cardioverted x2 to sinus rhythm and maintaining sinus rhythm on flecainide and Cardizem gives a history of a few months of dizziness on standing and also dizziness on changes in posture, and generalized weakness and fatigue. She came to the emergency room where she was bradycardic with the heart rate in the 30s. With a systolic blood pressure in the 70s. Poison control was called and the patient was placed on a bicarb drip and also was given IV fluid boluses. Subsequent to that the patient's blood pressure did come up. She was also given calcium gluconate which raised the point that this could be due to bradycardia induced by calcium channel allie. But when the patient was getting calcium gluconate her blood pressure has already come up with IV fluids. Hence clearly the patient's hypotension is related to volume depletion rather than bradycardia. Suspect that the bradycardia will linger on for a little while since the patient does have renal failure. The patient continues to have dizziness especially when she closes arises and when she moves her head or when she stands up. She also complains of tinnitus and problems with the years. The patient did present with a heart rate initially in the 40s and now in the low 50s with a stable blood pressure still has some dizziness when she moves her head around. Hence clearly this is not related to her sinus bradycardia. Also I feel that the blood pressure did come up with IV fluids. Although the heart rate did not supervisor picking crew a lot. She also states that she was diagnosed with renal insufficiency and has an appointment to see a mud engineer as an outpatient prior to this admission. Of note that the patient stopped taking Bumex about 10 days ago since she said that she urinated a lot. She denies history of congestive heart failure, coronary artery disease, or ME or anginal symptoms. She states she had a history of TIA from which she recovered fully. The patient is on chronic anticoagulation without any bleeding problems. As mentioned earlier she said she has been having proximal atrial fibrillation and has been cardioverted x2. Of note her renal function is improving and her GFR today 63 mL/min. We will have to get the patient's records from her staffing operations manager/ranch rider, especially a report of an echo. If no recent echo was done then would recommend getting a repeat echo here on Wednesday. Past Medical History Cardiac Medical History: Reports: Atrial Fibrillation, Hyperlipidema Denies: Coronary Artery Disease, Myocardial Infarction, Hypertension Pulmonary Medical History: Denies: Asthma, Bronchitis, Chronic Obstructive Pulmonary Disease (COPD), Pneumonia Neurological Medical History: Denies: Seizures GI Medical History: Denies: Hepatitis, Hiatal Hernia Musculoskeltal Medical History: Reports: Arthritis - rt knee Hematology: Denies: Anemia, Sickle Cell Disease Past Surgical History Past Surgical History: Denies: Amputation, Mastectomy, Pacemaker Social History Information Source: Patient, Emergency Med Personnel, [facility] Records Lives with: Family Smoking Status: Unknown if Ever Smoked Frequency of Alcohol Use: None Hx Recreational Drug Use: No Drugs: None Hx Prescription Drug Abuse: No - Advance Directive Resuscitation Status: Full Code Family History Family History: Hypertension Parental Family History Reviewed: Yes Children Family History Reviewed: Yes Sibling(s) Family History Reviewed.: Yes Medication/Allergy Home Medications: Allopurinol [Zyloprim 300 mg Tablet] 300 mg PO DAILY 05/12/19 Apixaban [Eliquis 2.5 mg Tablet] 2.5 mg PO BID 05/12/19 Bumetanide 1 mg PO BID 05/12/19 Diltiazem HCl [Diltiazem 24Hr ER] 180 mg PO DAILY 05/12/19 Ergocalciferol (Vitamin D2) [Drisdol] 50,000 unit PO .ONCE WEEKLY 05/12/19 Flecainide Acetate [Tambocor 100 Mg Tablet] 150 mg PO Q12H 05/12/19 Metformin HCl [Metformin ER Osmotic] 500 mg PO QHS 05/12/19 Potassium Citrate [Potassium Citrate ER] 15 meq PO BID 05/12/19 Pravastatin Sodium [Pravachol] 80 mg PO DAILY 05/12/19 Sodium Bicarbonate [Sodium Bicarbonate 650 mg Tablet] 650 mg PO BID 05/12/19 Allergies/Adverse Reactions: cyclobenzaprine [Cyclobenzaprine] Allergy (Severe, Verified 11/20/15 10:41) leg ulcers meloxicam [From Mobic] Allergy (Severe, Verified 11/20/15 10:41) leg ulcers Penicillins Allergy (Intermediate, Verified 07/03/11 10:49) RASH Review of Systems Constitutional: PRESENT: as per HPI, fatigue, weakness, weight gain. ABSENT: night sweats, weight loss Eyes: ABSENT: visual disturbances Ears: ABSENT: hearing changes Cardiovascular: PRESENT: as per HPI, dyspnea on exertion, edema. ABSENT: chest pain, palpitations Respiratory: ABSENT: cough, hemoptysis Gastrointestinal: PRESENT: constipation. ABSENT: abdominal pain, diarrhea, hematemesis, hematochezia, nausea, vomiting Genitourinary: ABSENT: dysuria, hematuria Musculoskeletal: PRESENT: muscle weakness. ABSENT: joint swelling Integumentary: ABSENT: rash, wounds Neurological: ABSENT: abnormal gait, abnormal speech, confusion, dizziness, focal weakness, syncope Psychiatric: ABSENT: anxiety, depression, homidical ideation, suicidal ideation Endocrine: ABSENT: cold intolerance, heat intolerance, polydipsia, polyuria Hematologic/Lymphatic: ABSENT: easy bleeding, easy bruising PHYSICAL EXAMINATION: Patient is morbidly obese,in no acute distress. Selected Entries 05/12/19 05/12/19 12:18 12:24 Temperature 97.8 F Temperature Oral Source Pulse Rate [ 50 L Apical] Respiratory 18 Rate Blood Pressure 162/69 H Blood Pressure 162/69 H [Left Upper Arm ] Blood Pressure 100 Mean Blood Pressure 100 Mean [Left Upper Arm] Blood Pressure Supine Position [Left Upper Arm] O2 Sat by Pulse 96 Oximetry Oxygen Delivery Nasal Cannula Method ( includes room air) Oxygen Flow 2 Rate HEAD: Is atraumatic normocephalic. EYES: Pupils are equal round regular reactive to light and accommodation. Extraocular movements are normal. There is no conjunctival pallor. There is no scleral icterus. EARS: Tympanic membranes are intact. External ear canals are clear. NOSE: There is no deviated nasal septum. There is no inflammation nasal mucous membrane. MOUTH: Mucous membranes of mouth are moist tongue is moist. There is no ulcers present there is no bleeding from the gums. THROAT: There is no redness of the oropharynx. There is no exudates. NECK: Is supple. There is no JVD. Carotids are equal there is no bruits. There is no lymphadenopathy. There is no accessory muscles of respiration use. Trachea central.. LUNGS: Is clear to auscultation percussion. HEART: S1-S2 is heard. S1 is of normal intensity. There is no S3 gallop. There is no S4 gallop. There is systolic murmur left sternal border and the apex there is no rub. ABDOMEN: Is obese. Nontender. There is no hepatospleno megaly. Bowel sounds are well heard. EXTREMITIES: Femorals are deep. Femorals are diminished. Leg pulses slightly diminished. There is no femoral bruits. There is no pedal edema. There is no DVT or cellulitis. There is no calf tenderness. There is no cyanosis or clubbing. NOODLE PRESS OPERATOR: The patient is conscious awake alert oriented x3 with no focal deficits. PSYCHIATRIC: Patient judgment insight are intact her affect is normal. Current Medications Generic Name Dose Route Start Last Admin Trade Name Freq PRN Reason Stop Dose Admin Acetaminophen 650 mg 05/12/19 10:35 Tylenol 325 Mg Tablet PO 06/11/19 10:34 Q4HP PRN FOR PAIN OR TEMP Al Hydrox/Mg Hydrox/Simethicone 30 ml 05/12/19 10:35 Maalox Plus Susp 30 Udcup PO 06/11/19 10:34 Q6HP PRN HEARTBURN Albuterol/Ipratropium 3 ml 05/12/19 10:35 Duoneb 3 Ml Ampul NEB 06/11/19 10:34 [id number] PRN SHORTNESS OF BREATH Betamethasone/Clotrimazole 1 applic 05/13/19 18:00 05/13/19 17:39 Lotrisone Cream 15 Gm TOP 06/12/19 17:59 1 applic BID EVANGELINA Administration Bumetanide 1 mg 05/14/19 10:00 Bumex 1 Mg Tablet PO 06/13/19 09:59 DAILY EVANGELINA Hydralazine HCl 10 mg 05/12/19 14:41 05/12/19 21:31 Apresoline Inj/Pf 20 Mg/1 Ml Sdv IV 06/11/19 14:40 10 mg Q6HP PRN Administration SBP>160 Insulin Human Lispro 0 - 16 unit 05/13/19 16:00 05/13/19 21:11 Humalog Insulin 100 Unit/1 Ml 3 Ml Vial SUBCUT 06/12/19 15:59 Not Given ACHS [facility] [place] Protocol Lactulose 10 gm 05/13/19 10:00 05/13/19 10:13 Cephulac Syrup 20 Gm/30 Ml Udcup PO 06/12/19 09:59 10 gm DAILY EVANGELINA Administration Meclizine HCl 12.5 mg 05/13/19 14:07 05/13/19 17:34 Antivert 12.5 Mg Tablet PO 06/12/19 14:06 12.5 mg Q8HP PRN Administration DIZZINESS Nitroglycerin 1 each 05/12/19 15:00 05/13/19 14:52 Nitro-Dur 5 Mg (0.2 Mg/Hr) Transdermal Patch TD 06/11/19 14:59 1 each DAILY EVANGELINA Administration Ondansetron HCl 4 mg 05/13/19 10:19 Zofran Inj/Pf 4 Mg/2 Ml Sdv IV 06/12/19 10:18 Q6HP PRN NAUSEA/VOMITING Discontinued Medications Generic Name Dose Route Start Last Admin Trade Name Freq PRN Reason Stop Dose Admin Bumetanide 1 mg 05/13/19 15:30 05/13/19 17:33 Bumex 1 Mg Tablet PO 05/13/19 15:31 1 mg NOW ONE Administration Bumetanide Confirm 05/13/19 17:29 05/13/19 17:34 Bumex 1 Mg Tablet Administered 05/13/19 17:30 Not Given Dose 1 mg .ROUTE .STK-MED ONE Calcium Gluconate Confirm 05/12/19 14:36 05/12/19 17:12 Calcium Gluconate Inj 1000 Mg/10 Ml Administered 05/12/19 14:37 Not Given Dose 1,000 mg IV .STK-MED ONE Calcium Gluconate 1,000 mg 05/12/19 14:45 05/12/19 14:45 Calcium Gluconate Inj 1000 Mg/10 Ml IV 05/12/19 14:46 1,000 mg NOW ONE Administration Furosemide 40 mg 05/12/19 15:00 05/12/19 14:54 Lasix Inj/Pf 40 Mg/4 Ml Sdv IV 05/12/19 15:01 40 mg NOW ONE Administration Furosemide Confirm 05/12/19 14:42 05/12/19 14:54 Lasix Inj/Pf 40 Mg/4 Ml Sdv Administered 05/12/19 14:43 Not Given Dose 40 mg .ROUTE .STK-MED ONE Glucagon 1 mg 05/12/19 11:00 05/12/19 11:37 Glucagen Inj 1 Mg Vial SUBCUT 05/12/19 11:01 1 mg NOW ONE Administration Hydralazine HCl Confirm 05/12/19 14:42 05/12/19 14:54 Apresoline Inj/Pf 20 Mg/1 Ml Sdv Administered 05/12/19 14:43 Not Given Dose 20 mg .ROUTE .STK-MED ONE Sodium Chloride 1,000 mls @ 0 mls/hr 05/12/19 08:58 05/12/19 10:37 Nacl 0.9% 1000 Ml Iv Soln IV 05/12/19 08:59 Infused BOLUS ONE Infusion Wide Open Fat Emulsion Intravenous 180 mls @ 0 mls/hr 05/12/19 09:33 05/12/19 10:59 Intralipid 20% Inj 50 Gm/250 Ml Bag IV 05/12/19 09:34 Not Given NOW ONE Wide Open Fat Emulsion Intravenous 250 mls @ 50 mls/hr 05/12/19 10:20 Intralipid 20% Inj 50 Gm/250 Ml Bag IV 05/12/19 15:19 NOW ONE Fat Emulsion Intravenous 180 mls @ 2,160 mls/hr 05/12/19 11:00 05/12/19 10:58 Intralipid 20% Inj 50 Gm/250 Ml Bag IV 05/12/19 11:04 Not Given NOW ONE Calcium Gluconate 2,000 mg/ 120 mls @ 60 mls/hr 05/12/19 11:30 05/12/19 11:37 Dextrose IV 05/12/19 13:29 60 mls/hr NOW ONE Administration Lactulose 20 gm 05/12/19 13:40 05/12/19 14:56 Cephulac Syrup 20 Gm/30 Ml Udcup PO 05/12/19 13:41 20 gm NOW ONE Administration Meclizine HCl Confirm 05/13/19 17:30 05/13/19 17:34 Antivert 25 Mg Tablet Administered 05/13/19 17:31 Not Given Dose 25 mg .ROUTE .STK-MED ONE Ondansetron HCl 4 mg 05/12/19 11:36 05/12/19 11:39 Zofran Inj/Pf 4 Mg/2 Ml Sdv IV 05/12/19 11:37 4 mg NOW ONE Administration Ondansetron HCl Confirm 05/13/19 10:05 05/13/19 10:14 Zofran Inj/Pf 4 Mg/2 Ml Sdv Administered 05/13/19 10:06 4 mg Dose Administration 4 mg .ROUTE .STK-MED ONE Sodium Bicarbonate 100 meq 05/12/19 09:51 05/12/19 10:20 Sodium Bicarbonate 8.4% Inj 50 Meq/50ml Syrin IV 05/12/19 09:52 100 meq NOW ONE Administration Sodium Bicarbonate 200 meq 05/12/19 10:47 05/12/19 11:13 Sodium Bicarbonate 8.4% Inj 50 Meq/50ml Syrin IV 05/12/19 10:48 200 meq IVBAG (ED) ONE Administration Sodium Bicarbonate Confirm 05/12/19 12:51 05/12/19 17:14 Sodium Bicarbonate 8.4% Inj 50 Meq/50ml Syrin Administered 05/12/19 12:52 Not Given Dose 50 meq .ROUTE .STK-MED ONE Sodium Bicarbonate 100 meq 05/12/19 15:15 05/12/19 13:00 Sodium Bicarbonate 8.4% Inj 50 Meq/50ml Syrin IV 05/12/19 15:16 100 meq NOW ONE Administration Labs- Entire Visit 05/12/19 05/12/19 05/12/19 08:38 08:38 08:38 WBC 7.2 RBC 4.58 Hgb 13.1 Hct 40.0 MCV 87 MCH 28.5 MCHC 32.7 RDW 15.4 H Plt Count 171 Lymph % (Auto) 13.6 [place] % (Auto) 9.0 Eos % (Auto) 1.4 Baso % (Auto) 0.6 Absolute Neuts (auto) 5.4 Absolute Lymphs (auto) 1.0 Absolute Monos (auto) 0.6 Absolute Eos (auto) 0.1 Absolute Basos (auto) 0.0 Seg Neutrophils % 75.4 PT 17.3 H INR 1.40 VBG pH VBG pCO2 VBG HCO3 VBG Base Excess Sodium 140.3 Potassium 4.1 Chloride 108 H Carbon Dioxide 27 Anion Gap 5 BUN 20 Creatinine 1.25 Est GFR ( Amer) 49 L Est GFR (MDRD) Non-Af 41 L Glucose 90 POC Glucose Lactic Acid Calcium 8.8 Phosphorus Magnesium Total Bilirubin 0.7 Direct Bilirubin 0.4 Neonat Total Bilirubin Not Reportable Neonat Direct Bilirubin Not Reportable Neonat Indirect Bili Not Reportable AST 15 ALT 19 Alkaline Phosphatase 191 H Creatine Kinase Troponin I NT-Pro-B Natriuret Pep Total Protein 5.6 L Albumin 2.9 L TSH Urine Color Urine Appearance Urine pH Ur Specific [place] Urine Protein Urine Glucose (UA) Urine Ketones Urine Blood Urine Nitrite Urine Bilirubin Urine Urobilinogen Ur Leukocyte Esterase Urine WBC (Auto) Urine RBC (Auto) Squamous Epi Cells Auto Amorphous Sediment Auto Urine Mucus (Auto) Urine Ascorbic Acid 05/12/19 05/12/19 05/12/19 08:38 08:38 08:38 WBC RBC Hgb Hct MCV MCH MCHC RDW Plt Count Lymph % (Auto) [place] % (Auto) Eos % (Auto) Baso % (Auto) Absolute Neuts (auto) Absolute Lymphs (auto) Absolute Monos (auto) Absolute Eos (auto) Absolute Basos (auto) Seg Neutrophils % PT INR VBG pH VBG pCO2 VBG HCO3 VBG Base Excess Sodium Potassium Chloride Carbon Dioxide Anion Gap BUN Creatinine Est GFR ( Amer) Est GFR (MDRD) Non-Af Glucose POC Glucose Lactic Acid Calcium Phosphorus 3.3 Magnesium 2.1 Total Bilirubin Direct Bilirubin Neonat Total Bilirubin Neonat Direct Bilirubin Neonat Indirect Bili AST ALT Alkaline Phosphatase Creatine Kinase 30 Troponin I 0.018 NT-Pro-B Natriuret Pep Total Protein Albumin TSH 2.27 Urine Color Urine Appearance Urine pH Ur Specific [place] Urine Protein Urine Glucose (UA) Urine Ketones Urine Blood Urine Nitrite Urine Bilirubin Urine Urobilinogen Ur Leukocyte Esterase Urine WBC (Auto) Urine RBC (Auto) Squamous Epi Cells Auto Amorphous Sediment Auto Urine Mucus (Auto) Urine Ascorbic Acid 05/12/19 05/12/19 05/12/19 09:23 09:36 09:40 WBC RBC Hgb Hct MCV MCH MCHC RDW Plt Count Lymph % (Auto) [place] % (Auto) Eos % (Auto) Baso % (Auto) Absolute Neuts (auto) Absolute Lymphs (auto) Absolute Monos (auto) Absolute Eos (auto) Absolute Basos (auto) Seg Neutrophils % PT INR VBG pH 7.35 VBG pCO2 53.5 VBG HCO3 28.6 VBG Base Excess 1.9 Sodium Potassium Chloride Carbon Dioxide Anion Gap BUN Creatinine Est GFR ( Amer) Est GFR (MDRD) Non-Af Glucose POC Glucose 92 Lactic Acid 1.2 Calcium Phosphorus Magnesium Total Bilirubin Direct Bilirubin Neonat Total Bilirubin Neonat Direct Bilirubin Neonat Indirect Bili AST ALT Alkaline Phosphatase Creatine Kinase Troponin I NT-Pro-B Natriuret Pep Total Protein Albumin TSH Urine Color Urine Appearance Urine pH Ur Specific [place] Urine Protein Urine Glucose (UA) Urine Ketones Urine Blood Urine Nitrite Urine Bilirubin Urine Urobilinogen Ur Leukocyte Esterase Urine WBC (Auto) Urine RBC (Auto) Squamous Epi Cells Auto Amorphous Sediment Auto Urine Mucus (Auto) Urine Ascorbic Acid 05/12/19 05/12/19 05/13/19 09:40 18:30 03:29 WBC 8.7 RBC 4.47 Hgb 12.7 Hct 38.4 MCV 86 MCH 28.4 MCHC 33.1 RDW 15.2 H Plt Count 151 Lymph % (Auto) 7.8 L [place] % (Auto) 9.5 Eos % (Auto) 1.0 Baso % (Auto) 0.6 Absolute Neuts (auto) 7.1 Absolute Lymphs (auto) 0.7 Absolute Monos (auto) 0.8 Absolute Eos (auto) 0.1 Absolute Basos (auto) 0.1 Seg Neutrophils % 81.1 H PT INR VBG pH VBG pCO2 VBG HCO3 VBG Base Excess Sodium 143.6 Potassium 4.1 Chloride 102 Carbon Dioxide 35 H Anion Gap 7 BUN 20 Creatinine 1.26 H Est GFR ( Amer) 49 L Est GFR (MDRD) Non-Af 40 L Glucose 112 H POC Glucose Lactic Acid Calcium 9.7 Phosphorus Magnesium Total Bilirubin 0.7 Direct Bilirubin 0.4 Neonat Total Bilirubin Not Reportable Neonat Direct Bilirubin Not Reportable Neonat Indirect Bili Not Reportable AST 18 ALT 24 Alkaline Phosphatase 224 H Creatine Kinase Troponin I NT-Pro-B Natriuret Pep Total Protein 5.9 L Albumin 3.3 L TSH Urine Color [place] Urine Appearance CLOUDY Urine pH 9.0 Ur Specific [place] 1.017 Urine Protein 100 H Urine Glucose (UA) NEGATIVE Urine Ketones NEGATIVE Urine Blood LARGE H Urine Nitrite NEGATIVE Urine Bilirubin NEGATIVE Urine Urobilinogen 2.0 H Ur Leukocyte Esterase TRACE H Urine WBC (Auto) 24 Urine RBC (Auto) >182 Squamous Epi Cells Auto Amorphous Sediment Auto Urine Mucus (Auto) RARE Urine Ascorbic Acid NEGATIVE 05/13/19 05/13/19 05/13/19 03:29 03:29 14:30 WBC RBC Hgb Hct MCV MCH MCHC RDW Plt Count Lymph % (Auto) [place] % (Auto) Eos % (Auto) Baso % (Auto) Absolute Neuts (auto) Absolute Lymphs (auto) Absolute Monos (auto) Absolute Eos (auto) Absolute Basos (auto) Seg Neutrophils % PT INR VBG pH VBG pCO2 VBG HCO3 VBG Base Excess Sodium 143.4 Potassium 3.8 Chloride 104 Carbon Dioxide 33 H Anion Gap 6 BUN 18 Creatinine 1.23 Est GFR ( Amer) 50 L Est GFR (MDRD) Non-Af 41 L Glucose 87 POC Glucose Lactic Acid Calcium 9.5 Phosphorus Magnesium 2.0 Total Bilirubin Direct Bilirubin Neonat Total Bilirubin Neonat Direct Bilirubin Neonat Indirect Bili AST ALT Alkaline Phosphatase Creatine Kinase Troponin I NT-Pro-B Natriuret Pep 956 H Total Protein Albumin TSH Urine Color Urine Appearance Urine pH Ur Specific [place] Urine Protein Urine Glucose (UA) Urine Ketones Urine Blood Urine Nitrite Urine Bilirubin Urine Urobilinogen Ur Leukocyte Esterase Urine WBC (Auto) Urine RBC (Auto) Squamous Epi Cells Auto Amorphous Sediment Auto Urine Mucus (Auto) Urine Ascorbic Acid 05/13/19 05/13/19 05/13/19 14:32 17:37 21:01 WBC RBC Hgb Hct MCV MCH MCHC RDW Plt Count Lymph % (Auto) [place] % (Auto) Eos % (Auto) Baso % (Auto) Absolute Neuts (auto) Absolute Lymphs (auto) Absolute Monos (auto) Absolute Eos (auto) Absolute Basos (auto) Seg Neutrophils % PT INR VBG pH VBG pCO2 VBG HCO3 VBG Base Excess Sodium Potassium Chloride Carbon Dioxide Anion Gap BUN Creatinine Est GFR ( Amer) Est GFR (MDRD) Non-Af Glucose POC Glucose 158 H 116 H Lactic Acid Calcium Phosphorus Magnesium Total Bilirubin Direct Bilirubin Neonat Total Bilirubin Neonat Direct Bilirubin Neonat Indirect Bili AST ALT Alkaline Phosphatase Creatine Kinase Troponin I NT-Pro-B Natriuret Pep Total Protein Albumin TSH Urine Color YELLOW Urine Appearance CLOUDY Urine pH 9.0 Ur Specific [place] 1.015 Urine Protein 30 H Urine Glucose (UA) NEGATIVE Urine Ketones TRACE H Urine Blood SMALL H Urine Nitrite NEGATIVE Urine Bilirubin NEGATIVE Urine Urobilinogen 4.0 H Ur Leukocyte Esterase NEGATIVE Urine WBC (Auto) Urine RBC (Auto) 25 Squamous Epi Cells Auto 1 Amorphous Sediment Auto TRACE Urine Mucus (Auto) RARE Urine Ascorbic Acid NEGATIVE Chest X-Ray 05/12/19 08:58 IMPRESSION: Basilar atelectasis. No evidence of pneumothorax. No overt failure. The patient's admission EKG shows severe sinus bradycardia with possible junctional rhythm. Doubt that this is atrial fibrillation. There is nonspecific IVCD. Subsequent EKG shows sinus bradycardia with first-degree AV block. And not junctional rhythm. There is nonspecific IVCD. Subsequent EKG also shows sinus bradycardia with first-degree AV block. IMPRESSION/RECOMMENDATION: 1. Severe bradycardia with hypotension. Note the hypotension responded to IV fluids. Hence is not caused by sinus bradycardia. Suspect the hypotension was secondary to volume depletion. The sinus bradycardia is most likely secondary to the patient's flecainide and Cardizem in the setting of renal failure. At present the patient's heart rate has come up to the low 50s and the blood pressure is stable and the patient has some dizziness which is not related to her sinus bradycardia or blood pressure. Would continue to hold the patient's Cardizem and flecainide. 2. DIZZINESS: Possibly partly this may be secondary to the patient's in a year problem since she also complains of tinnitus and describes dizziness with positional changes. She also states if she stands up suddenly she falls down but has not lost consciousness or had a syncopal episode. This could be a combination of benign positional vertigo compounded by postural hypotension 3. Paroxysmal atrial fibrillation: At present patient sinus bradycardia. Continue chronic anticoagulation. Would watch out for recurrence of atrial fibrillation. If the patient develops atrial fibrillation with rapid ventricular response then would need a permanent pacemaker to protect the patient from bradycardia induced by medications to control her heart rate. Note patient gives a history of atrial fibrillation cardioverted electrically x2 in the past 4. Hypertension: At present blood pressure stable. 5. Acute on chronic renal insufficiency. Continue slow hydration. Would recommend at present the patient not in heart failure and hence would we will hold the patient's diuretics. The patient's baseline creatinine and renal functions are not known. The patient states that she has been referred to see a mud engineer as an outpatient prior to her being admitted here. 6.diabetes mellitus type 2 [id number]. Continue current medication. Would recommend discontinue the patient's metformin. In view of the patient's renal status. 7.Possible ataxia with the cause being sensory ataxia due to the patient's complaining of dizziness and gait problems when she closes her eyes. We will recheck the patient's B12 and folic acid. Further dosing of Cardizem and flecainide depends on the patient's heart rate. Will discuss with the patient's staffing operations manager on Wednesday. Patient reviewed. Management plan and medication adjustment discussed with the attending provider on the case. Medical decision making is of high complexity. 60 minutes spent on patient with more than 50% time spent in direct patient care. Will follow
[2019-05-14 04:12] LABS: ANION GAP 6 (5-19); BLOOD UREA NITROGEN 18 mg/dL (7-20); CALCIUM 9.3 mg/dL (8.4-10.2); CARBON DIOXIDE 32 mmol/L (22-30); CHLORIDE 101 mmol/L (98-107); GLUCOSE 92 mg/dL (75-110); POTASSIUM 3.6 mmol/L (3.6-5.0)
[2019-05-14] MEDS: INSULIN LISPRO 100 UNIT/ML 3 ML VIAL SUBCUT SCH ×4 (09:09→21:23)
[2019-05-14] MEDS: LACTULOSE SYRUP 20 GM/30 ML UDCUP PO SCH (10:07)
[2019-05-14] MEDS: NITROGLYCERIN 5 MG (0.2 MG/HR) PATCH.TD24 TD SCH (10:07)
[2019-05-14] MEDS: ACETAMINOPHEN 325 MG TABLET PO PRN (10:09)
[2019-05-14] MEDS: CLOTRIMAZOLE/BETAMETHASONE DIP CREAM 15 GM TOP SCH ×2 (10:10→17:59)
[2019-05-14] MEDS: BUMETANIDE 1 MG TABLET PO SCH (10:12)
[2019-05-14] MEDS: MECLIZINE HCL 12.5 MG TABLET PO PRN (10:12)
[2019-05-14] MEDS: HYDRALAZINE HCL INJ/PF 20 MG/1 ML SDV IV PRN (14:15)
[2019-05-14] MEDS ORDERED: MECLIZINE HCL 12.5 MG TABLET PO PRN (14:19)
--- NOTE | 2019-05-14 14:24 | PDOC PROGRESS REPORT ---
Subjective Progress Note for:: 05/14/19 Subjective:: Patient is resting comfortably in bed. She is preparing for her bath with the nurses. No significant help with the meclizine 12.5 mg dose. Blood pressures are still elevated. Reason For Visit: BRADYCARDIA, CCB TOX Physical Exam Vital Signs: Temp Pulse Resp BP Pulse Ox 98.8 F 58 L 17 166/83 H 95 05/14/19 10:06 05/14/19 07:30 05/14/19 10:06 05/14/19 10:06 05/14/19 10:06 Intake & Output 05/13/19 05/14/19 05/15/19 06:59 06:59 06:59 Intake Total 1999 480 Output Total 4000 1575 Balance -1999 -1095 Weight 122.1 kg 120.4 kg General appearance: PRESENT: no acute distress, cooperative, morbidly obese, we ll-developed Head exam: PRESENT: atraumatic, normocephalic Ear exam: PRESENT: normal external ear exam. ABSENT: bleeding, drainage Respiratory exam: PRESENT: rales - Faint rales bilaterally, symmetrical, unlabored. ABSENT: accessory muscle use, rhonchi, stridor, tachypnea, wheezes Cardiovascular exam: PRESENT: RRR - Bradycardic, +S1, +S2, other GI/Abdominal exam: PRESENT: normal bowel sounds, soft. ABSENT: distended - Protuberant abdomen, tenderness Rectal exam: PRESENT: deferred Gentrourinary exam: PRESENT: indwelling catheter Extremities exam: PRESENT: pedal edema Musculoskeletal exam: PRESENT: normal inspection - Consistent with body habitus Neurological exam: PRESENT: alert, awake, oriented to person, oriented to place, oriented to time, oriented to situation, CN II-XII grossly intact Psychiatric exam: PRESENT: appropriate affect. ABSENT: agitated, anxious Focused psych exam: ABSENT: delusional, restlessness Skin exam: PRESENT: dry, normal color, warm Results Laboratory Results: 05/13/19 03:29 05/14/19 03:27 05/13/19 05/14/19 14:32 03:27 Sodium 138.8 Potassium 3.6 Chloride 101 Carbon Dioxide 32 H Anion Gap 6 BUN 18 Creatinine 1.23 Est GFR ( Amer) 50 L Glucose 92 Calcium 9.3 Magnesium 1.9 Vitamin B12 729.0 Folate 10.20 Urine Color YELLOW Urine Appearance CLOUDY Urine pH 9.0 Ur Specific Connelly 1.015 Urine Protein 30 H Urine Glucose (UA) NEGATIVE Urine Ketones TRACE H Urine Blood SMALL H Urine Nitrite NEGATIVE Ur Leukocyte Esterase NEGATIVE Urine RBC (Auto) 25 05/12/19 09:40 Catheterized Urine Urine Culture - Final NO GROWTH 2 DAYS 05/12/19 05/12/19 05/13/19 08:38 08:38 14:30 Creatine Kinase 30 Troponin I 0.018 NT-Pro-B Natriuret Pep 956 H 05/14/19 03:27 Creatine Kinase Troponin I NT-Pro-B Natriuret Pep 837 H Impressions: Chest X-Ray 05/12/19 08:58 IMPRESSION: Basilar atelectasis. No evidence of pneumothorax. No overt failure. Assessment and Plan - Diagnosis (1) Diabetes Qualifiers: Diabetes mellitus type: type 2 Is this a current diagnosis for this admission?: Yes Plan: 05/13/2019-history of diabetes. We will institute Accu-Cheks and sliding scale. Consider resuming metformin if appropriate. [id number]/14/[id number] are excellent. Continue current regimen. Resume metformin if Accu-Cheks begin to increase. (2) Weakness Is this a current diagnosis for this admission?: Yes Plan: 05/13/2019-multiple reasons for weakness. Certainly her morbid obesity, her poor appetite over the last several days as well as her multiple comorbidities. Physical therapy will work the patient. 05/14/2019-still complains of weakness. Will order physical therapy evaluation. (3) Constipation Qualifiers: Constipation type: chronic idiopathic constipation Qualified Code(s): K59.04 - Chronic idiopathic constipation Is this a current diagnosis for this admission?: Yes Plan: 05/13/2019-lactulose is prescribed. Continue to monitor for bowel movements. 05/14/2019-patient does not have a bowel movement today then will increase the s tool softener/laxative regimen. (4) Paroxysmal atrial fibrillation Is this a current diagnosis for this admission?: Yes Plan: 05/13/2019-the patient in fact is bradycardic. Tambocor and diltiazem are currently on hold. 05/14/2019-the patient is still bradycardic. Flecainide and diltiazem are on hold. (5) Symptomatic bradycardia Is this a current diagnosis for this admission?: Yes Plan: 05/13/2019-despite bradycardia she is hypertensive. Between her weakness, vertigo and legs buckling under her there are multiple issues for dizziness and falling. 05/14/2019-still with some bradycardia but she is hypertensive. Hydralazine has been added. (6) Hypertension Qualifiers: Hypertension type: essential hypertension Qualified Code(s): I10 - Essential (primary) hypertension Is this a current diagnosis for this admission?: Yes Plan: 05/13/2019-the blood pressure is elevated so I am going to resume Bumex 1 mg but administer it once daily. Continue to monitor intake and output closely. 05/14/2019-the patient is back on 1 mg of Bumex daily as opposed to her normal twice daily dosing. I have also added hydralazine 10 mg every 8 hours scheduled to slowly bring down her pressure without affecting her heart rate. (7) Vertigo Is this a current diagnosis for this admission?: Yes Plan: 05/13/2019-she still reports symptoms of vertigo including nausea and room spinning. I am going to initiate a trial of low-dose meclizine. 05/14/2019-increase the meclizine to 25 mg to see if there is better relief of her symptoms. (8) Morbid obesity with BMI of 40.0-44.9, adult Is this a current diagnosis for this admission?: Yes Plan: 05/13/2019-patient's body mass index is 40.9. This certainly could be contributing to the sense of weakness and fatigue as well as cause some difficulty breathing. She would benefit from weight loss and this would likely be accomplished by diet as she does not appear to have the capacity for cardiovascular exercise. 05/14/2019-consider aggressive diet as the patient clearly would not be able to engage in a significant amount of exercise. - Time Time Spent with patient: 15-24 minutes Medications reviewed and adjusted accordingly: Yes
[2019-05-14] MEDS: APIXABAN 2.5 MG TABLET PO SCH (18:00)
--- NOTE | 2019-05-14 18:45 | EKG REPORT ---
SEVERITY:- ABNORMAL ECG - SINUS BRADYCARDIA RHYTHM WITH APC NONSPECIFIC INTRAVENTRICULAR CONDUCTION DELAY LOW VOLTAGE THROUGHOUT BORDERLINE ST DEPRESSION, ANTEROLATERAL LEADS : Confirmed by: Dasha Mcnulty 14-May-2019 18:44:46
--- NOTE | 2019-05-14 18:46 | EKG REPORT ---
SEVERITY:- ABNORMAL ECG - SINUS BRADYCARDIA NONSPECIFIC IVCD WITH LAD : Confirmed by: Dasha Mcnulty 14-May-2019 18:45:33
--- NOTE | 2019-05-14 18:46 | EKG REPORT ---
SEVERITY:- ABNORMAL ECG - ATRIAL FIBRILLATION NONSPECIFIC INTRAVENTRICULAR CONDUCTION DELAY ABNRM R PROG, CONSIDER ASMI OR LEAD PLACEMENT MINIMAL ST DEPRESSION : Confirmed by: Dasha Mcnulty 14-May-2019 18:45:23
[2019-05-14] MEDS: HYDRALAZINE HCL 10 MG TABLET PO SCH (21:20)
--- NOTE | 2019-05-14 22:56 | Progress Note ---
Provider Note Provider Note: CARDIOLOGY PROGRESS NOTE by Dr. Eulalia Valdovinos on 05/14/2019. SUBJECTIVE: The patient denies any chest pain or discomfort. There is no shortness of breath. There is no PND orthopnea. The patient's heart rate is improved to the high to low 50s. Her blood pressure is elevated. She still has dizziness not helped with the Antivert. She has no TIA CVA symptoms. There is no recurrence of atrial fibrillation or ventricular arrhythmia seen. Physical EXAMINATION: The patient is morbidly obese. In no acute distress. Selected Entries 05/14/19 05/14/19 12:07 13:00 Temperature 98.2 F Heart Rate ( 50 52 Monitors) Respiratory 15 Rate Blood Pressure 176/78 H Blood Pressure 110 Mean O2 Sat by Pulse 99 Oximetry Patient on 2 L per nasal cannula HEAD: Is atraumatic normocephalic. EYES: Pupils are equal round regular reactive to light and accommodation. Extraocular movements are normal. There is no conjunctival pallor. There is no scleral icterus. EARS: Tympanic membranes are intact. External ear canals are clear. NOSE: There is no deviated nasal septum. There is no inflammation nasal mucous membrane. MOUTH: Mucous membranes of mouth are moist tongue is moist. There is no ulcers present there is no bleeding from the gums. THROAT: There is no redness of the oropharynx. There is no exudates. NECK: Is supple. There is no JVD. Carotids are equal there is no bruits. There is no lymphadenopathy. There is no accessory muscles of respiration use. Trachea central.. LUNGS: Is clear to auscultation percussion. HEART: S1-S2 is heard. S1 is of normal intensity. There is no S3 gallop. There is no S4 gallop. There is systolic murmur left sternal border and the apex there is no rub. ABDOMEN: Is obese. Nontender. There is no hepatospleno megaly. Bowel sounds are well heard. EXTREMITIES: Femorals are deep. Femorals are diminished. Leg pulses slightly diminished. There is no femoral bruits. There is no pedal edema. There is no DVT or cellulitis. There is no calf tenderness. There is no cyanosis or clubbing. 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 PSYCHIATRIC: Patient judgment insight are intact her affect is normal. Abnormal - 24 hr 05/14/19 05/14/19 03:27 03:27 Carbon Dioxide 32 H Est GFR ( Amer) 50 L Est GFR (MDRD) Non-Af 41 L NT-Pro-B Natriuret Pep 837 H Chest X-Ray 05/12/19 08:58 IMPRESSION: Basilar atelectasis. No evidence of pneumothorax. No overt failure. IMPRESSION/RECOMMENDATION: 1. Severe bradycardia with hypotension. Note the hypotension responded to IV fluids. Hence is not caused by sinus bradycardia. Suspect the hypotension was secondary to volume depletion. The sinus bradycardia is most likely secondary to the patient's flecainide and Cardizem in the setting of renal failure. At present the patient's heart rate has come up to the low 50s and the blood pressure is stable and the patient has some dizziness which is not related to her sinus bradycardia or blood pressure. Would continue to hold the patient's Cardizem and flecainide. 2. DIZZINESS: Possibly partly this may be secondary to the patient's in a year problem since she also complains of tinnitus and describes dizziness with positional changes. She also states if she stands up suddenly she falls down but has not lost consciousness or had a syncopal episode. This could be a combination of benign positional vertigo compounded by postural hypotension 3. Paroxysmal atrial fibrillation: At present patient sinus bradycardia. Continue chronic anticoagulation. Would watch out for recurrence of atrial fibrillation. If the patient develops atrial fibrillation with rapid ventricular response then would need a permanent pacemaker to protect the patient from bradycardia induced by medications to control her heart rate. Note patient gives a history of atrial fibrillation cardioverted electrically x2 in the past 4. Hypertension: At present blood pressure is high.Recommend starting patient on Hydralazine.. 5. Acute on chronic renal insufficiency. Continue slow hydration. Would recommend at present the patient not in heart failure and hence would we will hold the patient's diuretics. The patient's baseline creatinine and renal functions are not known. The patient states that she has been referred to see a tin pot operator as an outpatient prior to her being admitted here. 6.diabetes mellitus type 2 [id number]. Continue current medication. Would recommend discontinue the patient's metformin. In view of the patient's renal status. 7. Dizziness: The patient's B12 levels and folic acid levels are within normal limits. The dizziness is not helped with Antivert.? Etiology. Medications reviewed. Management plan discussed with attending provider on the case. Medical decision making is moderate to high complexity. 40 minutes spent on this patient with more than 50% of time spent in direct patient care will follow.
[2019-05-15 04:30] LABS: ANION GAP 6 (5-19); BLOOD UREA NITROGEN 18 mg/dL (7-20); CALCIUM 9.1 mg/dL (8.4-10.2); CARBON DIOXIDE 31 mmol/L (22-30); CHLORIDE 99 mmol/L (98-107); GLUCOSE 92 mg/dL (75-110); POTASSIUM 3.8 mmol/L (3.6-5.0)
[2019-05-15] MEDS: HYDRALAZINE HCL 10 MG TABLET PO SCH ×3 (06:20→21:33)
[2019-05-15] MEDS: INSULIN LISPRO 100 UNIT/ML 3 ML VIAL SUBCUT SCH ×3 (08:38→17:20)
[2019-05-15] MEDS: BUMETANIDE 1 MG TABLET PO SCH (09:42)
[2019-05-15] MEDS: LACTULOSE SYRUP 20 GM/30 ML UDCUP PO SCH (09:42)
[2019-05-15] MEDS: NITROGLYCERIN 5 MG (0.2 MG/HR) PATCH.TD24 TD SCH (09:42)
[2019-05-15] MEDS: APIXABAN 2.5 MG TABLET PO SCH ×2 (09:42→17:06)
[2019-05-15] MEDS: CLOTRIMAZOLE/BETAMETHASONE DIP CREAM 15 GM TOP SCH ×2 (09:48→17:06)
[2019-05-15] MEDS ORDERED: MAGNESIUM CITRATE 296 ML BOTTLE PO ONE (18:04)
[2019-05-15] MEDS: BISACODYL 5 MG TABEC PO PRN (21:34)
--- NOTE | 2019-05-15 22:22 | PDOC PROGRESS REPORT ---
Subjective Progress Note for:: 05/15/19 Subjective:: Patient is resting in bed this evening. She states that she has slept most of the day. She seems comfortable. Reason For Visit: BRADYCARDIA, CCB TOX, hypertension Physical Exam Vital Signs: Temp Pulse Resp BP Pulse Ox 97.9 F 55 L 19 134/49 H 95 05/15/19 19:44 05/15/19 19:44 05/15/19 19:44 05/15/19 19:44 05/15/19 19:44 Intake & Output 05/14/19 05/15/19 05/16/19 06:59 06:59 06:59 Intake Total 712 534 1680 Output Total 1578 2075 1300 Balance -1095 -1367 314 Weight 120.4 kg 120.8 kg Results Laboratory Results: 05/13/19 03:29 05/15/19 03:40 05/15/19 03:40 Sodium 135.7 L Potassium 3.8 Chloride 99 Carbon Dioxide 31 H Anion Gap 6 BUN 18 Creatinine 1.10 Est GFR ( Amer) 57 L Glucose 92 Calcium 9.1 Magnesium 1.9 05/12/19 05/12/19 05/13/19 08:38 08:38 14:30 Creatine Kinase 30 Troponin I 0.018 NT-Pro-B Natriuret Pep 956 H 05/14/19 03:27 Creatine Kinase Troponin I NT-Pro-B Natriuret Pep 837 H Impressions: Chest X-Ray 05/12/19 08:58 IMPRESSION: Basilar atelectasis. No evidence of pneumothorax. No overt failure. Assessment and Plan - Diagnosis (1) Symptomatic bradycardia Is this a current diagnosis for this admission?: Yes Plan: 05/13/2019-despite bradycardia she is hypertensive. Between her weakness, vertigo and legs buckling under her there are multiple issues for dizziness and falling. 05/14/2019-still with some bradycardia but she is hypertensive. Hydralazine has been added. 05/15/2019-bradycardia is improving. Her heart rate appears to be in the 50s and 60s for the most part. She has still not had any of her diltiazem or flecainide. We are controlling her blood pressure with other medications. The symptoms reportedly caused by the bradycardia may in fact have been other issues such as vertigo (2) Paroxysmal atrial fibrillation Is this a current diagnosis for this admission?: Yes Plan: 05/13/2019-the patient in fact is bradycardic. Tambocor and diltiazem are currently on hold. 05/14/2019-the patient is still bradycardic. Flecainide and diltiazem are on hold. 05/15/2019-still has not needed any flecainide or diltiazem. Bradycardia is improving. (3) Diabetes Qualifiers: Diabetes mellitus type: type 2 Diabetes mellitus skilled nursing insulin use: without long term care phlebotomist use Diabetes mellitus complication status: with kidney complications Diabetes mellitus complication detail: with chronic kidney disease Chronic kidney disease stage: stage 2 (mild) Qualified Code(s): E 11.22 - Type 2 diabetes mellitus with diabetic chronic kidney disease; N18.2 - Chronic kidney disease, stage 2 (mild) Is this a current diagnosis for this admission?: Yes Plan: 05/13/2019-history of diabetes. We will institute Accu-Cheks and sliding scale. Consider resuming metformin if appropriate. 05/14/[id number] are excellent. Continue current regimen. Resume metformin if Accu-Cheks begin to increase. 05/15/2019-excellent Accu-Cheks. At this time metformin not necessary. Consider resuming at discharge. (4) Weakness Is this a current diagnosis for this admission?: Yes Plan: 05/13/2019-multiple reasons for weakness. Certainly her morbid obesity, her poor appetite over the last several days as well as her multiple comorbidities. Physical therapy will work the patient. 05/14/2019-still complains of weakness. Will order physical therapy evaluation. 05/15/2019-physical therapy has seen the patient. She was able to stand. She does not report ambulating at all. We will continue to monitor. Function is still limited. (5) Constipation Qualifiers: Constipation type: chronic idiopathic constipation Qualified Code(s): K59.04 - Chronic idiopathic constipation Is this a current diagnosis for this admission?: Yes Plan: 05/13/2019-lactulose is prescribed. Continue to monitor for bowel movements. 05/14/2019-patient does not have a bowel movement today then will increase the stool softener/laxative regimen. 05/15/2019-patient reports no bowel movement yet. I will administer 1 bottle of citrate of magnesia and start MiraLAX. This should relieve the constipation. (6) Hypertension Qualifiers: Hypertension type: essential hypertension Qualified Code(s): I10 - Ess ential (primary) hypertension Is this a current diagnosis for this admission?: Yes Plan: 05/13/2019-the blood pressure is elevated so I am going to resume Bumex 1 mg but administer it once daily. Continue to monitor intake and output closely. 05/14/2019-the patient is back on 1 mg of Bumex daily as opposed to her normal twice daily dosing. I have also added hydralazine 10 mg every 8 hours scheduled to slowly bring down her pressure without affecting her heart rate. 05/15/2019-very good systolic blood pressures. Diastolics are somewhat low. Consider decreasing hydralazine. (7) Vertigo Is this a current diagnosis for this admission?: Yes Plan: 05/13/2019-she still reports symptoms of vertigo including nausea and room spinning. I am going to initiate a trial of low-dose meclizine. 05/14/2019-increase the meclizine to 25 mg to see if there is better relief of her symptoms. 05/15/2019-physical therapy reports that patient felt dizzy with standing. This certainly could be hypertension. The patient did not describe room spinning. There are multiple factors for lightheadedness and dizziness in this patient but we will continue as needed meclizine. (8) Morbid obesity with BMI of 40.0-44.9, adult Is this a current diagnosis for this admission?: Yes Plan: 05/13/2019-patient's body mass index is 40.9. This certainly could be contributing to the sense of weakness and fatigue as well as cause some dif ficulty breathing. She would benefit from weight loss and this would likely be accomplished by diet as she does not appear to have the capacity for cardiovascular exercise. 05/14/2019-consider aggressive diet as the patient clearly would not be able to engage in a significant amount of exercise. 05/15/2019-as above - Time Time Spent with patient: Less than 15 minutes Medications reviewed and adjusted accordingly: Yes - Plan Summary Plan Summary: Pleasant 88-year-old female who presented with bradycardia. She was on flecainide and diltiazem. 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 She received several treatments per poison control. The bradycardia is improving. The patient in fact is hypertensive and required multiple medications to bring her pressure down without adversely affecting her heart rate. Blood pressure is much better and even consider decreasing hydralazine. She is back on Bumex 1 mg daily instead of 2 mg. Cardiology is following. No negative chronotropic medicines at this time. She will continue physical therapy. I did asked the patient about disposition. She emphatically wishes to return home with home health.
--- NOTE | 2019-05-15 22:37 | Progress Note ---
Provider Note Provider Note: CARDIOLOGY PROGRESS NOTE by Dr. Eulalia Valdovinos on 05/15/2019. Subjective: The patient denies any chest pain or discomfort. There is no shortness of breath. She is remains in sinus bradycardia with a heart rate is come up to 58 bpm. She still has dizziness which is related to her posture or being moved in bed. There is no TIA CVA symptoms. There is no bleeding on Eliquis. There is no PND orthopnea or shortness of breath at rest. There is no leg edema. PHYSICAL EXAMINATION: The patient is morbidly obese. In no acute distress Selected Entries 05/15/19 08:21 Temperature 99.3 F Temperature Oral Source Pulse Rate 58 L Respiratory 18 Rate Blood Pressure 153/63 H O2 Sat by Pulse 98 Oximetry Oxygen Delivery Nasal Cannula Method ( includes room air) Oxygen Flow 2 Rate HEAD: Is atraumatic normocephalic. EYES: Pupils are equal round regular reactive to light and accommodation. Extraocular movements are normal. There is no conjunctival pallor. There is no scleral icterus. EARS: Tympanic membranes are intact. External ear canals are clear. NOSE: There is no deviated nasal septum. There is no inflammation nasal mucous membrane. MOUTH: Mucous membranes of mouth are moist tongue is moist. There is no ulcers present there is no bleeding from the gums. THROAT: There is no redness of the oropharynx. There is no exudates. NECK: Is supple. There is no JVD. Carotids are equal there is no bruits. There is no lymphadenopathy. There is no accessory muscles of respiration use. Trachea central.. LUNGS: Is clear to auscultation percussion. HEART: S1-S2 is heard. S1 is of normal intensity. There is no S3 gallop. There is no S4 gallop. There is systolic murmur left sternal border and the apex there is no rub. ABDOMEN: Is obese. Nontender. There is no hepatospleno megaly. Bowel sounds are well heard. EXTREMITIES: Femorals are deep. Femorals are diminished. Leg pulses slightly diminished. There is no femoral bruits. There is no pedal edema. There is no DVT or cellulitis. There is no calf tenderness. There is no cyanosis or clubbing. 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 PSYCHIATRIC: Patient judgment insight are intact her affect is normal. Abnormal - 24 hr 05/15/19 03:40 Sodium 135.7 L Carbon Dioxide 31 H Est GFR ( Amer) 57 L Est GFR (MDRD) Non-Af 47 L Chest X-Ray 05/12/19 08:58 IMPRESSION: Basilar atelectasis. No evidence of pneumothorax. No overt failure. IMPRESSION/RECOMMENDATION: 1. Severe bradycardia with hypotension. Note the hypotension responded to IV fluids. Hence is not caused by sinus bradycardia. Suspect the hypotension was secondary to volume depletion. The sinus bradycardia is most likely secondary to the patient's flecainide and Cardizem in the setting of renal failure. At present the patient's heart rate has come up to the low 50s and the blood pressure is stable and the patient has some dizziness which is not related to her sinus bradycardia or blood pressure. Would continue to hold the patient's Cardizem and flecainide. 2. DIZZINESS: Possibly partly this may be secondary to the patient's in a year problem since she also complains of tinnitus and describes dizziness with positional changes. She also states if she stands up suddenly she falls down but has not lost consciousness or had a syncopal episode. This could be a combination of benign positional vertigo compounded by postural hypotension 3. Paroxysmal atrial fibrillation: At present patient sinus bradycardia. Continue chronic anticoagulation. Would watch out for recurrence of atrial fibrillation. If the patient develops atrial fibrillation with rapid ventricular response then would need a permanent pacemaker to protect the patient from bradycardia induced by medications to control her heart rate. Note patient gives a history of atrial fibrillation cardioverted electrically x2 in the past 4. Hypertension: At present blood pressure is high.Recommend starting patient on Hydralazine.. 5. Acute on chronic renal insufficiency. Continue slow hydration. Would recommend at present the patient not in heart failure and hence would we will hold the patient's diuretics. The patient's baseline creatinine and renal functions are not known. The patient states that she has been referred to see a olive picker as an outpatient prior to her being admitted here. 6.diabetes mellitus type 2 [id number]. Continue current medication. Would recommend discontinue the patient's metformin. In view of the patient's renal status. 7. Dizziness: The patient's B12 levels and folic acid levels are within normal limits. The dizziness is not helped with Antivert.? Etiology. Medications reviewed. Management plan discussed with attending provider on the case. Medical decision making is moderate to high complexity. 40 minutes spent on this patient with more than 50% of time spent in direct patient care will follow.
[2019-05-16] MEDS: INSULIN LISPRO 100 UNIT/ML 3 ML VIAL SUBCUT SCH ×5 (00:37→21:26)
[2019-05-16] MEDS: HYDRALAZINE HCL 10 MG TABLET PO SCH ×3 (05:34→21:54)
[2019-05-16] MEDS: APIXABAN 2.5 MG TABLET PO SCH ×2 (09:38→17:26)
[2019-05-16] MEDS: LACTULOSE SYRUP 20 GM/30 ML UDCUP PO SCH (09:38)
[2019-05-16] MEDS: NITROGLYCERIN 5 MG (0.2 MG/HR) PATCH.TD24 TD SCH (09:38)
[2019-05-16] MEDS: CLOTRIMAZOLE/BETAMETHASONE DIP CREAM 15 GM TOP SCH ×2 (09:39→17:27)
[2019-05-16] MEDS: BUMETANIDE 1 MG TABLET PO SCH (09:39)
[2019-05-16] MEDS: POLYETHYLENE GLYCOL 3350 POWDER 17 GM/1 PACKET PO SCH (09:39)
--- NOTE | 2019-05-16 19:47 | PDOC PROGRESS REPORT ---
Subjective Progress Note for:: 05/16/19 Subjective:: No adverse events overnight. No new complaints. She wants to go home but when she worked with physical therapy the other day all she did was stand up at the edge of the bed. She did not work with him yesterday. Apparently she has not been walking very well for quite a while. She is very resistant to going to a longterm facility because someone she knows had a bad experience at some place. Reason For Visit: BRADYCARDIA, CCB TOX Physical Exam Vital Signs: Temp Pulse Resp BP Pulse Ox 98.2 F 62 20 144/64 H 99 05/16/19 16:29 05/16/19 19:00 05/16/19 16:29 05/16/19 16:29 05/16/19 16:29 Intake & Output 05/15/19 05/16/19 05/17/19 06:59 06:59 06:59 Intake Total 708 1614 1540 Output Total 2079 1850 1650 Balance -1367 -236 -110 Weight 120.8 kg 117.7 kg General appearance: PRESENT: no acute distress, cooperative, disheveled, morbidly obese Respiratory exam: PRESENT: clear to auscultation suzanne, symmetrical, unlabored. ABSENT: accessory muscle use, chest wall tenderness, crackles, prolonged expiratory phas, rhonchi, tachypnea, wheezes Cardiovascular exam: PRESENT: bradycardia, irregular rhythm Pulses: PRESENT: normal carotid pulses Vascular exam: PRESENT: normal capillary refill GI/Abdominal exam: PRESENT: normal bowel sounds, soft. ABSENT: distended, guarding, rebound, tenderness Extremities exam: ABSENT: clubbing, pedal edema Musculoskeletal exam: PRESENT: normal inspection. ABSENT: deformity Neurological exam: PRESENT: alert, awake, oriented to person, oriented to place, oriented to situation Psychiatric exam: PRESENT: appropriate affect, normal mood Skin exam: PRESENT: dry, warm Results Laboratory Results: 05/13/19 03:29 05/15/19 03:40 05/13/19 14:32 Catheterized Urine Urine Culture - Final Viridans Streptococcus 05/12/19 05/12/19 05/13/19 08:38 08:38 14:30 Creatine Kinase 30 Troponin I 0.018 NT-Pro-B Natriuret Pep 956 H 05/14/19 03:27 Creatine Kinase Troponin I NT-Pro-B Natriuret Pep 837 H Impressions: Chest X-Ray 05/12/19 08:58 IMPRESSION: Basilar atelectasis. No evidence of pneumothorax. No overt failure. Assessment and Plan - Diagnosis (1) Symptomatic bradycardia Is this a current diagnosis for this admission?: Yes Plan: She is been taken off her calcium channel allie in the flecainide and her heart rate is staying in the mid upper 50s. (2) Paroxysmal atrial fibrillation Is this a current diagnosis for this admission?: Yes Plan: She continues on Eliquis. She will follow-up with cardiology for further management. (3) Hypertension Qualifiers: Hypertension type: essential hypertension Qualified Code(s): I10 - Essential (primary) hypertension Is this a current diagnosis for this admission?: Yes Plan: Currently has fair control. Any agents use will need to be something that does not affect her heart rate. (4) Morbid obesity with BMI of 40.0-44.9, adult Is this a current diagnosis for this admission?: Yes Plan: Strongly encouraged lifestyle modification (5) Weakness Is this a current diagnosis for this admission?: Yes Plan: Have strongly encouraged her to consider going to a longterm facility, and that she does not have to go to whatever facility it was where her friend had a bad experience. She says that she will reconsider if she does not do well for physical therapy today. (6) Diabetes Qualifiers: Diabetes mellitus type: type 2 Diabetes mellitus tank terminal gauger insulin use: without residential use Diabetes mellitus complication status: with kidney complications Diabetes mellitus complication detail: with chronic kidney disease Chronic kidney disease stage: stage 2 (mild) Qualified Code(s): E11.22 - Type 2 diabetes mellitus with diabetic chronic kidney disease; N18.2 - Chronic kidney disease, stage 2 (mild) Is this a current diagnosis for this admission?: Yes Plan: Well-controlled on her current regimen - Time Time Spent with patient: 15-24 minutes
--- NOTE | 2019-05-16 21:04 | Progress Note ---
Provider Note Provider Note: cardiology PROGRESS NOTE by Dr. Eulalia Marinelli on 05/16/2019. SUBJECTIVE: The patient heart rate is much improved into the 60s. She denies any chest pain or discomfort. There is no ventricular arrhythmia seen on the monitor. There is no chest pain or discomfort there is no shortness of breath. There is no PND orthopnea. There is no TIA CVA symptoms. There is no bleeding on Eliquis. There is no recurrence of atrial fibrillation. The patient complains of being constipated. Physical EXAMINATION: The patient is morbidly obese. She is well-groomed. In no acute distress Selected Entries 05/16/19 16:29 Temperature 98.2 F Temperature Oral Source Pulse Rate 60 Respiratory 20 Rate Blood Pressure 144/64 H Blood Pressure 90 Mean BP Position Supine O2 Sat by Pulse 99 Oximetry Oxygen Flow 2.00 Rate Oxygen Delivery Nasal Cannula Method HEAD: Is atraumatic normocephalic. EYES: Pupils are equal round regular reactive to light and accommodation. Extraocular movements are normal. There is no conjunctival pallor. There is no scleral icterus. EARS: Tympanic membranes are intact. External ear canals are clear. NOSE: There is no deviated nasal septum. There is no inflammation nasal mucous membrane. MOUTH: Mucous membranes of mouth are moist tongue is moist. There is no ulcers present there is no bleeding from the gums. THROAT: There is no redness of the oropharynx. There is no exudates. NECK: Is supple. There is no JVD. Carotids are equal there is no bruits. There is no lymphadenopathy. There is no accessory muscles of respiration use. Trachea central.. LUNGS: Is clear to auscultation percussion. HEART: S1-S2 is heard. S1 is of normal intensity. There is no S3 gallop. There is no S4 gallop. There is systolic murmur left sternal border and the apex there is no rub. ABDOMEN: Is obese. Nontender. There is no hepatospleno megaly. Bowel sounds are well heard. EXTREMITIES: Femorals are deep. Femorals are diminished. Leg pulses slightly diminished. There is no femoral bruits. There is no pedal edema. There is no DVT or cellulitis. There is no calf tenderness. There is no cyanosis or clubbing. 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 PSYCHIATRIC: Patient judgment insight are intact her affect is normal. Labs- All tests 24 hr 05/16/19 05/16/19 05/16/19 00:04 10:48 16:44 POC Glucose 111 H 149 H 111 H 05/16/19 21:26 POC Glucose 120 H Chest X-Ray 05/12/19 08:58 IMPRESSION: Basilar atelectasis. No evidence of pneumothorax. No overt failure. IMPRESSION/RECOMMENDATION: 1. Severe bradycardia with hypotension. Note the hypotension responded to IV fluids. Hence is not caused by sinus bradycardia. Suspect the hypotension was secondary to volume depletion. The sinus bradycardia is most likely secondary to the patient's flecainide and Cardizem in the setting of renal failure. At present the patient's heart rate has come up to the low 50s and the blood press ure is stable and the patient has some dizziness which is not related to her sinus bradycardia or blood pressure. Would continue to hold the patient's Cardizem and flecainide. 2. DIZZINESS: Possibly partly this may be secondary to the patient's in a year problem since she also complains of tinnitus and describes dizziness with positional changes. She also states if she stands up suddenly she falls down but has not lost consciousness or had a syncopal episode. This could be a combination of benign positional vertigo compounded by postural hypotension 3. Paroxysmal atrial fibrillation: At present patient sinus bradycardia. Continue chronic anticoagulation. Would watch out for recurrence of atrial fibrillation. If the patient develops atrial fibrillation with rapid ventricular response then would need a permanent pacemaker to protect the patient from bradycardia induced by medications to control her heart rate. Note patient gives a history of atrial fibrillation cardioverted electrically x2 in the past. Later when the heart rate comes to 70 or above we will start the patient on a low-dose of flecainide. 4. Hypertension: At present blood pressure is high.Recommend starting patient on Hydralazine.. 5. Acute on chronic renal insufficiency. Continue slow hydration. Would recommend at present the patient not in heart failure and hence would we will hold the patient's diuretics. The patient's baseline creatinine and renal functions are not known. The patient states that she has been referred to see a accounts payable administrator as an outpatient prior to her being admitted here. 6.diabetes mellitus type 2 [id number]. Continue current medication. Would recommend discontinue the patient's metformin. In view of the patient's renal status. 7. Dizziness: The patient's B12 levels and folic acid levels are within normal limits. The dizziness is not helped with Antivert.? Etiology. Medications reviewed. Management plan discussed with attending provider on the case. Medical decision making is moderate to high complexity. 40 minutes spent on this patient with more than 50% of time spent in direct patient care will follow..
[2019-05-16] MEDS: BISACODYL 5 MG TABEC PO PRN (21:57)
[2019-05-17] MEDS: ACETAMINOPHEN 325 MG TABLET PO PRN ×2 (03:06→22:14)
[2019-05-17] MEDS: HYDRALAZINE HCL INJ/PF 20 MG/1 ML SDV IV PRN (03:10)
[2019-05-17] MEDS: HYDRALAZINE HCL 10 MG TABLET PO SCH ×3 (05:59→21:21)
[2019-05-17] MEDS: INSULIN LISPRO 100 UNIT/ML 3 ML VIAL SUBCUT SCH ×2 (08:26→11:50)
[2019-05-17] MEDS: POLYETHYLENE GLYCOL 3350 POWDER 17 GM/1 PACKET PO SCH (09:33)
[2019-05-17] MEDS: NITROGLYCERIN 5 MG (0.2 MG/HR) PATCH.TD24 TD SCH (09:33)
[2019-05-17] MEDS: LACTULOSE SYRUP 20 GM/30 ML UDCUP PO SCH (09:33)
[2019-05-17] MEDS: APIXABAN 2.5 MG TABLET PO SCH ×2 (09:35→17:27)
[2019-05-17] MEDS: BUMETANIDE 1 MG TABLET PO SCH (09:35)
[2019-05-17] MEDS: CLOTRIMAZOLE/BETAMETHASONE DIP CREAM 15 GM TOP SCH ×2 (09:44→17:27)
--- NOTE | 2019-05-17 18:00 | PDOC PROGRESS REPORT ---
Subjective Progress Note for:: 05/17/19 Subjective:: No adverse events overnight. No new complaints. Vital signs been stable. Heart rate has been in acceptable range. Blood pressure control has been acceptable today. She said that she feels like she did okay for physical therapy yesterday but she has decided that she would be willing to go to a [facility] facility in [place]. Reason For Visit: BRADYCARDIA, CCB TOX Physical Exam Vital Signs: Temp Pulse Resp BP Pulse Ox 97.6 F 56 L 16 133/86 H 97 05/17/19 11:40 05/17/19 14:00 05/17/19 11:40 05/17/19 11:40 05/17/19 11:40 Intake & Output 05/16/19 05/17/19 05/18/19 06:59 06:59 06:59 Intake Total 1614 1540 Output Total 1850 3250 Balance -236 -1710 Weight 117.7 kg 121.4 kg General appearance: PRESENT: no acute distress, cooperative, disheveled, morbidly obese Respiratory exam: PRESENT: clear to auscultation suzanne, symmetrical, unlabored. ABSENT: accessory muscle use, chest wall tenderness, crackles, prolonged expiratory phas, rhonchi, tachypnea, wheezes Cardiovascular exam: PRESENT: bradycardia, irregular rhythm Pulses: PRESENT: normal carotid pulses Vascular exam: PRESENT: normal capillary refill GI/Abdominal exam: PRESENT: normal bowel sounds, soft. ABSENT: distended, guarding, rebound, tenderness Extremities exam: ABSENT: clubbing, pedal edema Musculoskeletal exam: PRESENT: normal inspection. ABSENT: deformity Neurological exam: PRESENT: alert, awake, oriented to person, oriented to place, oriented to situation Psychiatric exam: PRESENT: appropriate affect, normal mood Skin exam: PRESENT: dry, warm Results Laboratory Results: 05/13/19 03:29 05/15/19 03:40 05/12/19 10:28 Blood Blood Culture - Final NO GROWTH IN 5 DAYS 05/12/19 09:23 Blood Blood Culture - Final NO GROWTH IN 5 DAYS 05/12/19 05/12/19 05/13/19 08:38 08:38 14:30 Creatine Kinase 30 Troponin I 0.018 NT-Pro-B Natriuret Pep 956 H 05/14/19 03:27 Creatine Kinase Troponin I NT-Pro-B Natriuret Pep 837 H Impressions: Chest X-Ray 05/12/19 08:58 IMPRESSION: Basilar atelectasis. No evidence of pneumothorax. No overt failure. Assessment and Plan - Diagnosis (1) Symptomatic bradycardia Is this a current diagnosis for this admission?: Yes Plan: She is been taken off her calcium channel allie in the flecainide and her heart rate is staying in the mid upper 50s. (2) Paroxysmal atrial fibrillation Is this a current diagnosis for this admission?: Yes Plan: She continues on Eliquis. She will follow-up with cardiology for further management. (3) Hypertension Qualifiers: Hypertension type: essential hypertension Qualified Code(s): I10 - Essential (primary) hypertension Is this a current diagnosis for this admission?: Yes Plan: Currently has fair control. Any agents use will need to be something that does not affect her heart rate. (4) Morbid obesity with BMI of 40.0-44.9, adult Is this a current diagnosis for this admission?: Yes Plan: Strongly encouraged lifestyle modification (5) Weakness Is this a current diagnosis for this admission?: Yes Plan: She has agreed to go to a facility in [place] for rehab. Case management is involved making the arrangements. (6) Diabetes Qualifiers: Diabetes mellitus type: type 2 Diabetes mellitus halfway insulin use: without ink maker use Diabetes mellitus complication status: with kidney complications Diabetes mellitus complication detail: with chronic kidney disease Chronic kidney disease stage: stage 2 (mild) Qualified Code(s): E11.22 - Type 2 diabetes mellitus with diabetic chronic kidney disease; N18.2 - Chronic kidney disease, stage 2 (mild) Is this a current diagnosis for this admission?: Yes Plan: Well-controlled on her current regimen - Time Time Spent with patient: 15-24 minutes
[2019-05-17] MEDS: BISACODYL 5 MG TABEC PO PRN (22:13)
[2019-05-18] MEDS: HYDRALAZINE HCL 10 MG TABLET PO SCH ×2 (05:37→14:19)
[2019-05-18] MEDS: NITROGLYCERIN 5 MG (0.2 MG/HR) PATCH.TD24 TD SCH (09:38)
[2019-05-18] MEDS: APIXABAN 2.5 MG TABLET PO SCH (09:38)
[2019-05-18] MEDS: BUMETANIDE 1 MG TABLET PO SCH (09:38)
[2019-05-18] MEDS: POLYETHYLENE GLYCOL 3350 POWDER 17 GM/1 PACKET PO SCH (09:40)
[2019-05-18] MEDS: LACTULOSE SYRUP 20 GM/30 ML UDCUP PO SCH (09:40)
[2019-05-18] MEDS: CLOTRIMAZOLE/BETAMETHASONE DIP CREAM 15 GM TOP SCH (09:41)
--- NOTE | 2019-05-18 11:41 | PDOC TRANSFER SUMMARY ---
General - Admit/Disc Date/PCP Admission Date/Primary Care Provider: 05/12/19 10:43 DAVID MARES MD Discharge Date: 05/18/19 - Discharge Diagnosis (1) Symptomatic bradycardia Is this a current diagnosis for this admission?: Yes Summary: She was on Cardizem and flecainide. These medications were discontinued and her heart rate has stabilized around 55-60 with a normal blood pressure. (2) Paroxysmal atrial fibrillation Is this a current diagnosis for this admission?: Yes Summary: She is been in a sinus rhythm, Cardizem and flecainide were discontinued as noted above, she continues on Eliquis. (3) Hypertension Is this a current diagnosis for this admission?: Yes Summary: We discontinued her Cardizem but put her on some hydralazine because this should not affect her heart rate by lowering it. Blood pressures have been in the norm al range. (4) Morbid obesity with BMI of 40.0-44.9, adult Is this a current diagnosis for this admission?: Yes Summary: Strongly encouraged lifestyle modification. Encouraged physical therapy because she is not very mobile. (5) Weakness Is this a current diagnosis for this admission?: Yes Summary: Physical therapy recommended senior living facility placement for rehab and eventually the patient consented to go. (6) Diabetes Is this a current diagnosis for this admission?: Yes Summary: Blood sugars have been very well controlled and she will continue on metformin after discharge. - Additional Information Resuscitation Status: Full Code Discharge Diet: Cardiac, Diabetic Discharge Activity: Supervised Activity Home Medications: Allopurinol [Zyloprim 300 mg Tablet] 300 mg PO DAILY 05/12/19 Apixaban [Eliquis 2.5 mg Tablet] 2.5 mg PO BID 05/12/19 Bumetanide 1 mg PO BID 05/12/19 Ergocalciferol (Vitamin D2) [Drisdol] 50,000 unit PO .ONCE WEEKLY 05/12/19 Metformin HCl [Metformin ER Osmotic] 500 mg PO QHS 05/12/19 Potassium Citrate [Potassium Citrate ER] 15 meq PO BID 05/12/19 Pravastatin Sodium [Pravachol] 80 mg PO DAILY 05/12/19 Sodium Bicarbonate [Sodium Bicarbonate 650 mg Tablet] 650 mg PO BID 05/12/19 Hydralazine HCl [Apresoline 10 mg Tablet] 10 mg PO Q8 tablet 05/18/19 Polyethylene Glycol 3350 [Miralax Powder 17 gm/Packet] 17 gm PO DAILY powd.pack 05/18/19 History of Present Illness Admission Date/PCP: 05/12/19 10:43 DAVID MARES MD History of Present Illness: JOHN FAULKNER is a 88 year old female with a past medical history of morbid obesity, diabetes and paroxysmal atrial fibrillation on Eliquis, flecainide and Cardizem. Morbid obesity generalized debility, gait disorder transferring from bed to commode at baseline. She presents with 3 or 4 weeks of generalized weakness at the insistence of her daughter. She is found to have a heart rate in the 30s a blood pressure of 70/40. She denies recent change in medications via pill packs, [id number] agents or additional medications. She does however admit to discontinuation of Bumex weeks ago because of excessive urination. Poison control was contacted by emergency room provider recommending calcium carbonate as needed QRS greater than 140 and ICU observation. She denies chest pain nausea vomiting diaphoresis. Hospital Course Hospital Course: She was brought in and her Cardizem and flecainide were discontinued and her heart rate trended up over couple of days and stabilized between 55 and 60 in a sinus rhythm. Rate control is not been an issue. She continues on anticoagulation with Eliquis. We had to substitute hydralazine for her blood pressure and her blood pressures have subsequently been in the normal range. She was initially very resistant to going to senior living facility despite the fact that she could not move very well at all. The best she has done here is about 15 feet with a walker and she looked very unsteady on her feet. Eventually she agreed to go to [facility]. A bed was obtained and she is being transferred in good condition. Physical Exam Vital Signs: Temp Pulse Resp BP Pulse Ox 97.3 F 58 L 18 134/66 H 98 05/18/19 07:26 05/18/19 07:26 05/18/19 07:26 05/18/19 07:26 05/18/19 07:26 Intake & Output 05/17/19 05/18/19 05/19/19 06:59 06:59 06:59 Intake Total 1540 2500 Output Total 3250 3425 Balance -1710 -925 Weight 121.4 kg 121.2 kg General appearance: PRESENT: no acute distress, cooperative, disheveled, morbidly obese Respiratory exam: PRESENT: clear to auscultation suzanne, symmetrical, unlabored. ABSENT: accessory muscle use, chest wall tenderness, crackles, prolonged expiratory phas, rhonchi, tachypnea, wheezes Cardiovascular exam: PRESENT: bradycardia, irregular rhythm Pulses: PRESENT: normal carotid pulses Vascular exam: PRESENT: normal capillary refill GI/Abdominal exam: PRESENT: normal bowel sounds, soft. ABSENT: distended, guarding, rebound, tenderness Extremities exam: ABSENT: clubbing, pedal edema Musculoskeletal exam: PRESENT: normal inspection. ABSENT: deformity Neurological exam: PRESENT: alert, awake, oriented to person, oriented to place, oriented to situation Psychiatric exam: PRESENT: appropriate affect, normal mood Skin exam: PRESENT: dry, warm Results Laboratory Results: 05/13/19 03:29 05/15/19 03:40 05/12/19 10:28 Blood Blood Culture - Final NO GROWTH IN 5 DAYS 05/12/19 09:23 Blood Blood Culture - Final NO GROWTH IN 5 DAYS 05/12/19 05/12/19 05/13/19 08:38 08:38 14:30 Creatine Kinase 30 Troponin I 0.018 NT-Pro-B Natriuret Pep 956 H 05/14/19 03:27 Creatine Kinase Troponin I NT-Pro-B Natriuret Pep 837 H Impressions: Chest X-Ray 05/12/19 08:58 IMPRESSION: Basilar atelectasis. No evidence of pneumothorax. No overt failure. Transfer Plan - Time Spent with Patient Time spent with patient: Greater than 30 Minutes Qualifiers - * PATIENT BEING DISCHARGED WITH ANY OF THE FOLLOWING DIAGNOSIS: No Acute Heart Failure - Is this a Heart Failure Patient?: No
[2019-05-18 12:10] VITALS: BP 135/58
== END 2019-05-18 17:00 | DRG 309 ==
LOC: ER 08:49 → EH 10:43 → ICU 12:18 → 3W 05-15 08:38
PROVIDERS: ADMIT Internal Medicine; ATTEND Internal Medicine
DX: R00.1 Bradycardia, unspecified (principal); Z68.41 Body mass index [BMI] 40.0-44.9, adult; T46.1X5A Adverse effect of calcium-channel blockers, initial encounter; T46.2X5A Adverse effect of other antidysrhythmic drugs, initial encounter; E66.01 Morbid (severe) obesity due to excess calories; R26.89 Other abnormalities of gait and mobility; I48.0 Paroxysmal atrial fibrillation; E78.5 Hyperlipidemia, unspecified; M17.9 Osteoarthritis of knee, unspecified; K59.04 Chronic idiopathic constipation; I95.9 Hypotension, unspecified; R42 Dizziness and giddiness; I12.9 Hypertensive chronic kidney disease with stage 1 through stage 4 chronic kidney disease, or unspecified chronic kidney disease; E11.22 Type 2 diabetes mellitus with diabetic chronic kidney disease; N18.2 Chronic kidney disease, stage 2 (mild); Z88.0 Allergy status to penicillin; Z79.02 Long term (current) use of antithrombotics/antiplatelets; Z79.899 Other long term (current) drug therapy
CPT/HCPCS: 36415; 71045; 80048; 80053; 81001; 82550; 82607; 82746; 82803; 82962; 83605; 83735; 83880; 84100; 84443; 84484; 85025; 85610; 87040; 87070; 87086; 93005; 93010; 96360; 99285; J0360; J0610; J1610; J1940; J2405; J3490; J7030; J7060

== ENCOUNTER → 2019-06-20 | Outpatient (CLI) | payer MEDICARE, BC ==
[2019-06-20 09:52] LABS: ABSOLUTE BASOPHILS # (AUTO) 0.1 10^3/uL (0.0-0.2); ABSOLUTE EOSINOPHILS # (AUTO) 0.1 10^3/uL (0.0-0.6); ABSOLUTE LYMPHOCYTES (AUTO) 1.4 10^3/uL (0.5-4.7); ABSOLUTE MONOCYTES (AUTO) 0.6 10^3/uL (0.1-1.4); ABSOLUTE NEUT (AUTO) 2.9 10^3/uL (1.7-8.2); BASOPHILS % (AUTO) 2.2 % (0-2); EOSINOPHILS % (AUTO) 2.4 % (0-6); HEMATOCRIT 43.4 % (36.0-47.0); HEMOGLOBIN 14.5 g/dL (12.0-15.5); LYMPHOCYTES % (AUTO) 27.5 % (13-45); MEAN CORPUSCULAR HEMOGLOBIN 28.7 pg (27.0-33.4); MEAN CORPUSCULAR HGB CONC 33.4 g/dL (32.0-36.0); MEAN CORPUSCULAR VOLUME 86 fl (80-97); MONOCYTES % (AUTO) 12.1 % (3-13); PLATELET COUNT 244 10^3/uL (150-450); RED BLOOD COUNT 5.07 10^6/uL (3.72-5.28); SEGMENTED NEUTROPHILS % (AUTO) 55.8 % (42-78); TOTAL CELLS COUNTED % (AUTO) 100 %; WHITE BLOOD COUNT 5.2 10^3/uL (4.0-10.5)
[2019-06-20 10:09] LABS: ANION GAP 8 (5-19); BLOOD UREA NITROGEN 24 mg/dL (7-20); CALCIUM 10.3 mg/dL (8.4-10.2); CARBON DIOXIDE 31 mmol/L (22-30); CHLORIDE 101 mmol/L (98-107); GLUCOSE 92 mg/dL (75-110); POTASSIUM 4.1 mmol/L (3.6-5.0)
== END ==
LOC: OD 08:42
PROVIDERS: ATTEND Family Medicine Geriatric Medicine
DX: I48.0 Paroxysmal atrial fibrillation (principal); R31.9 Hematuria, unspecified; Z79.899 Other long term (current) drug therapy
CPT/HCPCS: 36415; 80048; 83735; 85025

== ENCOUNTER 2019-11-22 17:08 | Emergency (ER) | payer MEDICARE, BC ==
--- NOTE | 2019-11-22 18:28 | RADIOLOGY REPORT (SQ) ---
EXAM DESCRIPTION: CHEST SINGLE VIEW COMPLETED DATE/TIME: 11/22/2019 6:08 pm REASON FOR STUDY: eval for pneumonia COMPARISON: Chest films 09/27/2012, 05/12/2019 EXAM PARAMETERS: NUMBER OF VIEWS: One view. TECHNIQUE: Single frontal radiographic view of the chest acquired. RADIATION DOSE: NA LIMITATIONS: None. FINDINGS: LUNGS AND PLEURA: Minimal chronic bibasilar atelectasis or scarring. Lungs otherwise well inflated and clear. No pleural effusion. No pneumothorax. MEDIASTINUM AND HILAR STRUCTURES: No masses. Contour normal. HEART AND VASCULAR STRUCTURES: Borderline cardiomegaly, stable BONES: No acute findings. HARDWARE: Left-sided dual lead pacemaker OTHER: No other significant finding. IMPRESSION: No acute findings TECHNICAL DOCUMENTATION: JOB ID: [id number] [employer]- All Rights Reserved Reading location - IP/workstation name: [email or web address]
[2019-11-22 18:54] LABS: ABSOLUTE EOSINOPHILS # (AUTO) 0.1 10^3/uL (0.0-0.6); ABSOLUTE MONOCYTES (AUTO) 0.6 10^3/uL (0.1-1.4); ABSOLUTE NEUT (AUTO) 4.1 10^3/uL (1.7-8.2); BASOPHILS % (AUTO) 0.7 % (0-2); EOSINOPHILS % (AUTO) 1.3 % (0-6); HEMATOCRIT 41.3 % (36.0-47.0); HEMOGLOBIN 14.1 g/dL (12.0-15.5); LYMPHOCYTES % (AUTO) 17.3 % (13-45); MEAN CORPUSCULAR HEMOGLOBIN 30.8 pg (27.0-33.4); MEAN CORPUSCULAR HGB CONC 34.2 g/dL (32.0-36.0); MEAN CORPUSCULAR VOLUME 90 fl (80-97); PLATELET COUNT 172 10^3/uL (150-450); RED BLOOD COUNT 4.58 10^6/uL (3.72-5.28); RED CELL DISTRIBUTION WIDTH 15.3 % (11.5-14.0); SEGMENTED NEUTROPHILS % (AUTO) 70.7 % (42-78); TOTAL CELLS COUNTED % (AUTO) 100 %; WHITE BLOOD COUNT 5.7 10^3/uL (4.0-10.5)
[2019-11-22 19:19] LABS: AMORPHOUS SEDIMENT,URINE TRACE /HPF; APPEARANCE,URINE CLOUDY; BILIRUBIN,URINE NEGATIVE (NEGATIVE); COLOR,URINE YELLOW; GLUCOSE, URINE NEGATIVE (NEGATIVE); KETONES,URINE NEGATIVE (NEGATIVE); LEUKOCYTE ESTERASE,URINE NEGATIVE (NEGATIVE); NITRITE,URINE NEGATIVE (NEGATIVE); PROTEIN,URINE NEGATIVE (NEGATIVE); URINE SPECIFIC GRAVITY 1.012; UROBILINOGEN,URINE NEGATIVE mg/dL (<2.0)
[2019-11-22 19:20] LABS: NT PRO BNP 1990 pg/mL (<450)
[2019-11-22 19:24] LABS: ALBUMIN 3.4 g/dL (3.5-5.0); ALKALINE PHOSPHATASE 201 U/L (38-126); ANION GAP 7 (5-19); ASPARTATE AMINO TRANSFERASE 17 U/L (14-36); BILIRUBIN,TOTAL 0.8 mg/dL (0.2-1.3); BLOOD UREA NITROGEN 24 mg/dL (7-20); CALCIUM 9.7 mg/dL (8.4-10.2); CARBON DIOXIDE 32 mmol/L (22-30); CHLORIDE 99 mmol/L (98-107); GLUCOSE 87 mg/dL (75-110); POTASSIUM 4.6 mmol/L (3.6-5.0)
--- NOTE | 2019-11-22 19:26 | ER Document Report ---
ED General - General Chief Complaint: Nausea Stated Complaint: NAUSEA Time Seen by Provider: 11/22/19 17:29 Primary Care Provider: DAVID MARES MD [Primary Care Provider] - Follow up as needed Mode of Arrival: Medic Information source: Patient TRAVEL OUTSIDE OF THE [place] IN LAST 30 DAYS: No - HPI Onset: Other - over the last several days Onset/Duration: Gradual Quality of pain: Achy Severity: Moderate Pain Level: 2 Associated symptoms: Weakness, Other - leg swelling bilaterally Exacerbated by: Denies Relieved by: Denies Similar symptoms previously: No Recently seen / treated by doctor: No Notes: 89 year old female with a history of AFib on Eliquis, CHF, DM, HLD, Arthritis, Obesity here for generalized weakness, body aches, and trouble ambulating. The patient apparently lives at home with her who is 91. The patient denies fevers, chills, sweats, nausea, vomiting, diarrhea. The patient says she is so weak she is having trouble ambulating at this point and she has been having some falls. The patient has not hit her head and she is not having headaches of any kind. - Related Data Allergies/Adverse Reactions: cyclobenzaprine [Cyclobenzaprine] Allergy (Severe, Verified 11/22/19 17:43) leg ulcers meloxicam [From Mobic] Allergy (Severe, Verified 11/22/19 17:43) leg ulcers Penicillins Allergy (Intermediate, Verified 11/22/19 17:43) RASH Home Medications: Vitamin D2. Eliquis. Allopurinol. Pravastatin sodium. potassium citrate. flecainide acetate. Metformin. Bumetanide. Sodium Bicaard. Ciprofloxacin Past Medical History - General Information source: Patient - Social History Smoking Status: Never Smoker Frequency of alcohol use: None Drug Abuse: None Lives with: Spouse/Significant other Family History: Hypertension Patient has suicidal ideation: No Patient has homicidal ideation: No - Past Medical History Cardiac Medical History: Reports: Hx Atrial Fibrillation, Hx Hype rcholesterolemia Denies: Hx Coronary Artery Disease, Hx Heart Attack, Hx Hypertension Pulmonary Medical History: Denies: Hx Asthma, Hx Bronchitis, Hx COPD, Hx Pneumonia Neurological Medical History: Denies: Hx Cerebrovascular Accident, Hx Seizures GI Medical History: Denies: Hx Hepatitis, Hx Hiatal Hernia, Hx Ulcer Musculoskeletal Medical History: Reports Hx Arthritis - rt knee Infectious Medical History: Denies: Hx Hepatitis Past Surgical History: Reports: Hx Cardiac Surgery - pacemaker, Hx Hysterectomy. Denies: Hx Mastectomy, Hx Open Heart Surgery, Hx Pacemaker - Immunizations Hx Diphtheria, Pertussis, Tetanus Vaccination: No Hx Pneumococcal Vaccination: 09/06/06 Review of Systems - Review of Systems Constitutional: Weakness EENT: No symptoms reported Cardiovascular: No symptoms reported Respiratory: No symptoms reported Gastrointestinal: No symptoms reported Genitourinary: No symptoms reported Female Genitourinary: No symptoms reported Musculoskeletal: Other - edema of legs Skin: No symptoms reported Hematologic/Lymphatic: No symptoms reported Neurological/Psychological: No symptoms reported -: Yes All other systems reviewed and negative Physical Exam - Vital signs Vitals: Resp Pulse Ox 16 86 L 11/22/19 17:19 11/22/19 17:19 - Notes Notes: GENERAL: Chronically ill-appearing, well-nourished and in no acute distress. HEAD: Atraumatic, normocephalic. EYES: Pupils equal round and reactive to light, extraocular movements intact, sclera anicteric, conjunctiva are normal. ENT: Nares patent, oropharynx clear without exudates. Moist mucous membranes. NECK: Normal range of motion, supple without lymphadenopathy or JVD. LUNGS: Breath sounds clear to auscultation bilaterally and equal. No wheezes rales or rhonchi. HEART: Regular rate and rhythm without murmurs, rubs or gallops. ABDOMEN: Soft, nontender, normoactive bowel sounds. No guarding, no rebound. No masses appreciated. EXTREMITIES: Normal range of motion but patient is generally weak, pitting edema of both legs, No clubbing or cyanosis. NEUROLOGICAL: Cranial nerves II through XII grossly intact. Normal speech, normal gait. PSYCH: Normal mood, normal affect. SKIN: Warm, Dry, normal turgor, chronic skin changes on legs Course - Re-evaluation Re-evalutation: 11/22/19 20:07 The patient is here for generalized weakness, body aches, and leg swelling. The patient seems somewhat volume overloaded based on the edema in her legs and elevated BNP. Will treat with IV Lasix here in the ER but patient does not need admission at this time. 11/22/19 20:25 Patients chest xray and flu swab are unremarkable. Patient is safe for outpatient follow up. She was told to take an extra dose of her diuretic for the next 3 days and then to follow up with her PCP or [facility]. Due to the pandemic of COVID19, the patient is likely more safe at home then being admitted even though she is having some ambulation issues due to generalized weakness. - Vital Signs Vital signs: Temp Pulse Resp BP Pulse Ox 98.3 F 18 144/91 H 97 11/22/19 17:20 11/22/19 17:20 11/22/19 17:20 11/22/19 17:20 - Laboratory Result Diagrams: 11/22/19 18:29 11/22/19 18:29 Laboratory results interpreted by me: 11/22/19 11/22/19 11/22/19 18:29 18:29 18:29 RDW 15.3 H Carbon Dioxide 32 H BUN 24 H Creatinine 1.36 H Est GFR ( Amer) 45 L Est GFR (MDRD) Non-Af 37 L Alkaline Phosphatase 201 H NT-Pro-B Natriuret Pep 1990 H Total Protein 6.0 L Albumin 3.4 L - Diagnostic Test Radiology reviewed: Image reviewed, Reports reviewed Discharge - Discharge Clinical Impression: Weakness Heart failure Qualifiers: Heart failure type: unspecified Heart failure chronicity: unspecified Qualified Code(s): I50.9 - Heart failure, unspecified Condition: Stable Disposition: HOME, SELF-CARE Instructions: Congestive Heart Failure ([facility]), Weakness ([facility]) Additional Instructions: Take an extra dose of your diuretic for the next 3 days to help with the leg edema/swelling. Follow up with your primary care doctor and with your [facility] D[facility] Tender and tell them about your ER visit. You had blood work, an influenza test, a chest xray, and a urine analysis here in the ER where were all unremarkable except for an elevated BNP (heart failure lab value) of 1989. Referrals: DAVID MARES MD [Primary Care Provider] - Follow up as needed
[2019-11-22 19:42] LABS: TROPONIN I < 0.012 ng/mL
[2019-11-22] MEDS ORDERED: FUROSEMIDE INJ/PF 20 MG/2 ML SDV IV ONE (20:11)
[2019-11-22 20:15] LABS: A TYPE INFLUENZA AG NEGATIVE (NEGATIVE); B INFLUENZA AG NEGATIVE (NEGATIVE)
[2019-11-22 21:20] VITALS: BP 130/97
== END 2019-11-22 21:49 | disposition home or self-care (01) ==
LOC: ER 17:08
DX: I50.9 Heart failure, unspecified (principal); R53.1 Weakness; R52 Pain, unspecified; E78.00 Pure hypercholesterolemia, unspecified; E78.5 Hyperlipidemia, unspecified; E11.9 Type 2 diabetes mellitus without complications; I48.91 Unspecified atrial fibrillation; Z79.01 Long term (current) use of anticoagulants; Z79.899 Other long term (current) drug therapy; Z79.84 Long term (current) use of oral hypoglycemic drugs; Z79.2 Long term (current) use of antibiotics; Z95.0 Presence of cardiac pacemaker; Z91.81 History of falling; Z88.8 Allergy status to other drugs, medicaments and biological substances; Z88.0 Allergy status to penicillin
CPT/HCPCS: 36415; 71045; 80053; 81001; 83735; 83880; 84484; 85025; 87804; 99284